=== PATIENT | female | born 1975 | race Two or more races ===

== ENCOUNTER → 2016-11-24 | Outpatient (CLI) | payer OTHER ==
[2016-10-08 09:00] VITALS: BP 142/76
[~2016-11-24] MED LIST: CYCL10TA2 PO; FLUC150T PO; IBUP-1027 PO; IOHEXOL 240 MG/ML 50ML VIAL. PO ONE; IOHEXOL 300 MG/ML 75 ML VIAL IV ONE; LISI-338 PO; NAPR500T PO
--- NOTE | 2016-11-24 10:58 | RAD ---
CT of the chest, abdomen and pelvis with contrast, 11/24/2016: History: Right breast cancer Multidetector CT imaging was performed following oral and IV administration of contrast. No previous studies are available at this time for comparison purposes. There is a 4.5 cm mass in the lateral aspect of the right breast compatible with the given history of a breast malignancy. There is right breast skin thickening. There are mildly enlarged right axillary lymph nodes with the largest of these measuring 29 x 12 x 20 mm. No mediastinal or hilar adenopathy is seen. The thoracic aorta is of normal caliber. No pulmonary mass or significant infiltrate is seen. There is no evidence of pleural fluid. No hepatic abnormality is seen. There is a small radiopacity along the posterior wall of the gallbladder suggesting a calculus versus a mural calcification. The pancreas is unremarkable. The spleen is of normal size. No renal or adrenal abnormality is detected. The abdominal aorta is unremarkable. No abdominal or pelvic adenopathy is seen. The uterus is within normal limits in size, deviated to the right of midline. There is a small cyst in the left ovary. The bowel loops are not dilated. No significant free fluid is evident in the abdomen. No significant bony abnormality is detected. IMPRESSION: 1. Right breast mass compatible with the given history of breast malignancy. 2. Mild right axillary adenopathy. 3. No CT evidence of intrathoracic, abdominal or pelvic metastatic disease. 4. Probable cholelithiasis. PQRS Compliance Statement: One or more of the following individualized dose reduction techniques were utilized for this examination: 1. Automated exposure control 2. Adjustment of the mA and/or kV according to patient size 3. Use of iterative reconstruction technique
== END | disposition home or self-care (01) ==
LOC: CT 08:17
PROVIDERS: ATTEND Family Medicine
DX: D05.11 Intraductal carcinoma in situ of right breast (principal)
CPT/HCPCS: 71260; 74177; Q9966; Q9967

== ENCOUNTER → 2016-11-26 | Day surgery (SDC) | payer OTHER ==
[~2016-11-26] VITALS: Ht 149.9 cm; Wt 64.9 kg
[~2016-11-26] MED LIST changes: +DEXAMETHASONE SOD PHOS 20 MG/5 ML VIAL. ONE; +HEPARIN SODIUM 5,000 UNIT in IV NORMAL SALINE 500ML BAG 500 ML IRR ONE; +HEPARIN for IV BOLUS 10,000 UNIT/10 ML VIAL. ONE; +HYDR-971 PO; +HYDROcodone/APAP 5/325MG 1 TAB TABLET PO ONE; +HYDROmorphone 2 MG/ML VIAL IV PRN; -IOHEXOL 240 MG/ML 50ML VIAL. PO ONE; -IOHEXOL 300 MG/ML 75 ML VIAL IV ONE; +IV RINGERS,LACTATED 1000ML 1,000 ML IV SCH; +LIDOCAINE 1% 1 ML SYRINGE. ID PRN; +LIDOCAINE 1% PF 30 ML VIAL. ONE; +LIDOCAINE 2% PF Vial for OR 5 ML VIAL. ONE; +MIDAZOLAM HCL/PF 2 MG/2 ML VIAL. ONE; +MORPHINE SULFATE 2 MG/ML DISP.SYRIN. IV PRN; +ONDANSETRON PF 4 MG/2 ML VIAL. IV PRN; +ONDANSETRON PF 4 MG/2 ML VIAL. ONE; +PHENYLEPHRINE in 0.9% NACL PF 1 MG/10 ML DISP.SYRIN. IV ONE; +PROCHLORPERAZINE 10 MG/2 ML VIAL. IV PRN; +PROPOFOL 20 ML IV ONE; +SEVOFLURANE 61 TO 120 MINUTES. IH ONE; +fentaNYL PF VIAL 100 MCG/2 ML VIAL IV PRN; +fentaNYL PF VIAL 100 MCG/2 ML VIAL ONE
--- NOTE | 2016-11-26 12:56 | PDOC1 ---
History and Physical Date of Admission Date of Admission DATE: 11/26/16 TIME: 12:52 History of Present Illness History of Present Illness The patient is a 41 year old female who was recently diagnosed with right breast cancer with spread to an axillary lymph node. She received an Oncology consultation and will be receiving neoadjuvant chemotherapy. A request was made for a portacath to begin treatment. Past Medical History Past Medical History R breast cancer Past Surgical History Past Surgical History C section Social History Smoke: No ALCOHOL: none Current Medications Current Medications Current Medications Ondansetron HCl (Zofran) 4 mg PRN Q6HRS PRN IV NAUSEA/VOMITING; Start 11/26/16 at 07:00; Stop 11/27/16 at 06:59 Fentanyl Citrate (Fentanyl 2ml Vial) 25 mcg PRN Q5MIN PRN IV MILD PAIN; Start 11/26/16 at 07:00; Stop 11/27/16 at 06:59 Fentanyl Citrate (Fentanyl 2ml Vial) 50 mcg PRN Q5MIN PRN IV MODERATE PAIN; Start 11/26/16 at 07:00; Stop 11/27/16 at 06:59 Morphine Sulfate 1 mg PRN Q10MIN PRN IV SEVERE PAIN; Start 11/26/16 at 07:00; Stop 11/27/16 at 06:59 Ringer's Solution 1,000 ml @ 30 mls/hr Q24H IV Last administered on 11/26/16t 12:28; Start 11/26/16 at 07:00; Stop 11/26/16 at 18:59 Lidocaine HCl 2 ml PRN 1X PRN ID PRIOR TO IV START; Start 11/26/16 at 07:00; Stop 11/27/16 at 06:59 Hydromorphone HCl (Dilaudid) 0.5 mg PRN Q10MIN PRN IV SEV PAIN, Second choice; Start 11/26/16 at 07:00; Stop 11/27/16 at 06:59 Prochlorperazine Edisylate (Compazine) 5 mg PACU PRN PRN IV NAUSEA, MRX1; Start 11/26/16 at 07:00; Stop 11/27/16 at 06:59 Cefazolin Sodium/ Dextrose 50 ml @ 100 mls/hr 1X PREOP PRN IV Prior to surgery ; Start 11/26/16 at 08:00 Lidocaine HCl 30 ml STK-MED ONCE .ROUTE ; Start 11/26/16 at 06:59; Stop at 07:00; Status DC Heparin Sodium (Porcine) (Heparin Sodium) 10,000 unit STK-MED ONCE .ROUTE ; Start 11/26/16 at 07:00; Stop 11/26/16 at 07:01; Status DC Heparin Sodium (Porcine) 5000 unit/Sodium Chloride 505 ml @ 505 mls/hr 1X PERIOP ONCE IRR ; Start 11/26/16 at 07:24; Stop 11/26/16 at 08:23; Status DC Active Scripts Active Reported Lisinopril 5 Mg Tablet 5 Mg PO DAILY Allergies Allergies: Coded Allergies: No Known Drug Allergies (Unverified , 11/26/16) ROS General: No: Chills, Night Sweats, Fatigue, Malaise, Appetite, Other PSYCHOLOGICAL ROS: No: Anxiety, Behavioral Disorder, Concentration difficultie , Decreased libido, Depression, Disorientation, Hallucinations, Hostility, Irritablity, Memory difficulties, Mood Swings, Obsessive thoughts, Physical abuse, Sexual abuse, Sleep disturbances, Suicidal ideation, Other Eyes: No Blurry vision, No Decreased vision, No Double vision, No Dry eyes, No Excessive tearing, No Eye Pain, No Itchy Eyes, No Loss of vision, No Photophobia , No Scotomata, No Uses contacts, No Uses glasses, No Other HEENT: No: Heacaches, Visual Changes, Hearing change, Nasal congestion, Nasal discharge, Oral lesions, Sinus pain, Sore Throat, Epistaxis, Sneezing, Snoring, Tinnitus, Vertigo, Vocal changes, Other ALLERGY AND IMMUNOLOGY: No: Hives, Insect Bite Sensitivity, Itchy/Watery Eyes, Nasal Congestion, Post Nasal Drip, Seasonal Allergies, Other Hematological and Lymphatic: No: Bleeding Problems, Blood Clots, Blood Transfusions, Brusing, Night Sweats, Pallor, Swollen Lymph Nodes, Other ENDOCRINE: No: Breast Changes, Galactorrhea, Hair Pattern Changes, Hot Flashes , Malaise/lethargy, Mood Swings, Palpitations, Polydipsia/polyuria, Skin Changes , Temperature Intolerance, Unexpected Weight Changes, Other Respiratory: No: Cough, Hemoptysis, Orthopnea, Pleuritic Pain, Shortness of breath, SOB with excertion, Sputum Changes, Stridor, Tachypnea, Wheezing, Other Cardiovascular: No Chest Pain, No Palpitations, No Orthopnea, No Paroxysmal Noc. Dyspnea, No Edema, No Lt Headedness, No Other Gastrointestinal: No Nausea, No Vomiting, No Abdominal Pain, No Diarrhea, No Constipation, No Melena, No Hematochezia, No Other Genitourinary: No Dysuria, No Frequency, No Incontinence, No Hematuria, No Retention, No Discharge, No Urgency, No Pain, No Flank Pain, No Other, No , No , No , No , No , No , No Musculoskeletal: No Gait Disturbance, No Joint Pain, No Joint Stiffness, No Joint Swelling, No Muscle Pain, No Muscular Weakness, No Pain In:, No Swelling In:, No Other Neurological: No Behavorial Changes, No Bowel/Bladder ControlChng, No Confusion , No Dizziness, No Gait Disturbance, No Headaches, No Impaired Coord/balance, No Memory Loss, No Numbness/Tingling, No Seizures, No Speech Problems, No Tremors, No Visual Changes, No Weakness, No Other Skin: No Dry Skin, No Eczema, No Hair Changes, No Lumps, No Mole Changes, No Mottling, No Nail Changes, No Pruritus, No Rash, No Skin Lesion Changes, No Other, No Acne Physical Exam General: Alert, Oriented X3, Cooperative HEENT: Atraumatic Lungs: Clear to auscultation Heart: RRR Breasts: Abnormal mass palpable (R breast, upper outer quadrant) Abdomen: Soft, No tenderness Extremities: No clubbing, No cyanosis Skin: No rashes, No breakdown Neuro: Normal gait, Normal speech Vitals Vitals Vital Signs Date Time Temp Pulse Resp B/P (MAP) Pulse Ox O2 Delivery O2 Flow Rate FiO2 11/26/16 12:08 98.4 64 20 169/76 100 Room Air 98.4 VTE Prophylaxis Ordered VTE Prophylaxis Devices: Yes VTE Pharmacological Prophylaxi: No Assessment/Plan Assessment/Plan R breast cancer with spread to lymph nodes; Plan for portacath placement with sonosite guidance. The details and risks of surgery were discussed. She understands and would like to proceed. REY YEAGER MD November 26, 2016 12:56
--- NOTE | 2016-11-26 16:40 | DISCH ---
DISCHARGE INSTRUCTIONS Condition on Discharge Condition on Discharge: Stable Activity After Discharge Activity Instructions for Disc: Resume previous activity, Other, see below Diet after Discharge Diet after Discharge: Regular Wound Incision Care Wound/Incision Care: Other, see below (keep dressing clean and dry) Follow-Up Follow up with: Cancer center, call for appointment REY YEAGER MD November 26, 2016 16:40
--- NOTE | 2016-11-26 16:44 | PDOC4 ---
Operative Note Operative Note Operative Note: Preoperative Diagnosis: R breast Cancer Postoperative Diagnosis: Same Procedure: Placement of Power Port-A-Cath using SonoSite guidance Surgeon: Rahat Anesthesia: Gen. EBL: 10 mL Specimen: None Drains: None Complications: None Indication: The patient is a 41 year old female who was recently diagnosed with breast cancer. A request was made for placement of a Port-A-Cath to allow for chemotherapy treatment. The details and risks of the procedure were discussed. The risks include bleeding, infection, vessel injury, pneumothorax, pain, anesthetic risk, port, catheter or tubing malfunction or dysfunction, potential need for additional surgery or procedure. The patient understands and would like to proceed. Description: The patient was placed supine on the operating table and general anesthesia was performed. The bilateral neck and chest were prepped with ChloraPrep and draped in a standard surgical manner. With SonoSite ultrasound guidance the left internal jugular vein was readily identified and appeared patent. Entry was made into the vein with the skinny introducer needle under ultrasound guidance. The skinny guidewire passed readily into the central venous system and was visualized with fluoroscopy. A small incision was made at the skin exit site. The skinny sheath was then placed over the guidewire. The larger guidewire was then placed within the sheath into the central venous system. Intraoperative fluoroscopy confirmed good position of the guidewire in the central venous system. The dilator and sheath were then placed over the guidewire. The catheter portion was then inserted into the central venous system and visualized using fluoroscopy. A separate left upper chest skin incision was made with a scalpel. A subcutaneous pocket was developed with cautery of sufficient size to accommodate the port. The catheter was then tunneled subcutaneously to the level of the newly formed pocket. Using fluoroscopy the catheter was positioned with the tip in the distal superior vena cava. The catheter was then cut and assembled to the port. The port was then secured to the chest wall with two 2-0 Prolene sutures. Using the Watson needle the port readily aspirated and flushed without difficulty. Fluoroscopy confirmed good positioning of the catheter with no twists or kinks. The subcutaneous tissue was approximated with 3-0 Vicryl. The skin was then closed with 4-0 Monocryl. A sterile OpSite dressing was then applied. The patient tolerated the procedure well and was sent to the recovery room in stable condition. At the end of the case all counts were correct. REY YEAGER MD November 26, 2016 16:44
[2016-11-26 17:27] LABS: NEG OBC UR NEG; POS OBC UR POS
[2016-11-26 18:10] VITALS: BP 134/67
--- NOTE | 2016-11-27 08:19 | RAD ---
Portable chest, 11/26/2016: History: Check Port-A-Cath placement No previous chest radiographs are available at this time for comparison purposes. A left Port-A-Cath has been inserted extending into the inferior aspect of the superior vena cava. The heart is within normal limits in size. The pulmonary vascularity is normal. There is mild atelectasis medially in the left base. The lungs are otherwise clear. There is no evidence of pleural fluid or pneumothorax. IMPRESSION: 1. The left Port-A-Cath is in satisfactory position. 2. Mild left basilar atelectasis.
== END | disposition home or self-care (01) ==
LOC: SURG 11:44
PROVIDERS: ATTEND Surgery
DX: C50.911 Malignant neoplasm of unspecified site of right female breast (principal); J98.11 Atelectasis; I10 Essential (primary) hypertension
CPT/HCPCS: 36561; 71010; 81025; C1788; J1100; J2250; J2370; J2405; J2704; J3010; J7040; J7120; 36556

== ENCOUNTER → 2016-12-26 | Outpatient (CLI) | payer OTHER ==
[2016-11-26 18:10] VITALS: BP 134/67
[~2016-12-26] MED LIST changes: -DEXAMETHASONE SOD PHOS 20 MG/5 ML VIAL. ONE; -HEPARIN SODIUM 5,000 UNIT in IV NORMAL SALINE 500ML BAG 500 ML IRR ONE; -HEPARIN for IV BOLUS 10,000 UNIT/10 ML VIAL. ONE; -HYDROcodone/APAP 5/325MG 1 TAB TABLET PO ONE; -HYDROmorphone 2 MG/ML VIAL IV PRN; -IV RINGERS,LACTATED 1000ML 1,000 ML IV SCH; -LIDOCAINE 1% 1 ML SYRINGE. ID PRN; -LIDOCAINE 1% PF 30 ML VIAL. ONE; -LIDOCAINE 2% PF Vial for OR 5 ML VIAL. ONE; -MIDAZOLAM HCL/PF 2 MG/2 ML VIAL. ONE; -MORPHINE SULFATE 2 MG/ML DISP.SYRIN. IV PRN; -ONDANSETRON PF 4 MG/2 ML VIAL. IV PRN; -ONDANSETRON PF 4 MG/2 ML VIAL. ONE; -PHENYLEPHRINE in 0.9% NACL PF 1 MG/10 ML DISP.SYRIN. IV ONE; -PROCHLORPERAZINE 10 MG/2 ML VIAL. IV PRN; -PROPOFOL 20 ML IV ONE; -SEVOFLURANE 61 TO 120 MINUTES. IH ONE; -fentaNYL PF VIAL 100 MCG/2 ML VIAL IV PRN; -fentaNYL PF VIAL 100 MCG/2 ML VIAL ONE
--- NOTE | 2016-12-26 15:58 | CARD ---
APPROVED REPORT EXAM: Two-dimensional and M-mode echocardiogram with Doppler and color Doppler. Other Information Quality : GoodHR: 66bpm Rhythm : NSR INDICATION Chemotherapy f/u evaluation RISK FACTORS Hypertension 2D DIMENSIONS RVDd2.5 (2.9-3.5cm)Left Atrium(2D)3.5 (1.6-4.0cm) IVSd1.0 (0.7-1.1cm)Aortic Root(2D)2.0 (2.0-3.7cm) LVDd4.1 (3.9-5.9cm)LVOT Diameter1.9 (1.8-2.4cm) PWd0.8 (0.7-1.1cm)LVDs2.5 (2.5-4.0cm) FS (%) 39.1 %SV53.2 ml LVEF(%)69.9 (>50%) Aortic Valve AoV Peak Gigi.177.7cm/sAoV VTI39.3cm AO Peak GR.12.6mmHgLVOT Peak Gigi.143.9cm/s AO Mean GR.7mmHgAVA (VMAX)2.24cm2 Mitral Valve MV E Eigyulrh84.8cm/sMV E Peak Gr.4mmHg MV DECEL [id number] A Meldmtiw85.3cm/s MV E Mean Gr.1mmHgE/A Ratio1.3 MV A Vmtpfrdf47tw Pulmonary Valve PV Peak Jlghwqsm490.2cm/s Tricuspid Valve TR P. Djitmyhv594lm/sTR Peak Gr.27mmHg Pulmonary Vein S1 Ctomohxm35.0cm/sD2 Iexyitzv94.6cm/s PVa [id number] LEFT VENTRICLE The left ventricle is normal size. There is normal left ventricular wall thickness. The left ventricu lar systolic function is normal and the ejection fraction is within normal range. The Ejection Fracti on is 65-70%. There is normal LV segmental wall motion. The left ventricular diastolic function and f illing is normal for age. RIGHT VENTRICLE The right ventricle is normal size. There is normal right ventricular wall thickness. The right ventr icular systolic function is normal. ATRIA The left atrium size is normal. The right atrium size is normal. The interatrial septum is intact wit h no evidence for an atrial septal defect or patent foramen ovale as noted on 2-D or Doppler imaging. AORTIC VALVE The aortic valve is normal in structure and function. The aortic valve is trileaflet. Doppler and Col or Flow revealed no significant aortic regurgitation. There is no significant aortic valvular stenosi s. MITRAL VALVE The mitral valve is normal in structure and function. There is no evidence of mitral valve prolapse. There is no mitral valve stenosis. Doppler and Color Flow revealed no mitral valve regurgitation note d. TRICUSPID VALVE Doppler and Color Flow revealed trace tricuspid regurgitation. The pulmonary artery systolic pressure is estimated at 30 mmHg. There is mild pulmonary hypertension. PULMONIC VALVE Doppler and Color Flow revealed no pulmonic valvular regurgitation. There is no pulmonic valvular shailesh nosis. GREAT VESSELS The aortic root is normal in size. The ascending aorta is normal in size. The pulmonary artery is nor mal. The IVC is normal in size and collapses >50% with inspiration. PERICARDIAL EFFUSION There is no evidence of significant pericardial effusion. Critical Notification Critical Value: No <Conclusion> The left ventricular systolic function is normal and the ejection fraction is within normal range. Th e Ejection Fraction is 65-70%. There is normal LV segmental wall motion.
== END | disposition home or self-care (01) ==
LOC: ECHO 12:52
PROVIDERS: ATTEND Internal Medicine Cardiovascular Disease
DX: Z09 Encounter for follow-up examination after completed treatment for conditions other than malignant neoplasm (principal); I10 Essential (primary) hypertension
CPT/HCPCS: 93306

== ENCOUNTER 2017-01-07 17:01 | Inpatient (IN) | payer SELFPAY ==
[~2017-01-07] VITALS: Ht 144.8 cm; Wt 60.8 kg
[2017-01-07] MEDS ORDERED: IV NORMAL SALINE 1000ML BAG 1,000 ML IV SCH (18:27)
[2017-01-07] MEDS ORDERED: fentaNYL PF VIAL 100 MCG/2 ML VIAL IV PRN (18:30)
[2017-01-07 18:47] LABS: BASO % 0 % (0-3); EOS % 1 % (0-3); HEMATOCRIT 34.7 % (36.0-47.0); HEMOGLOBIN 11.4 g/dL (12.0-15.5); LYMPH % 29 % (24-48); MEAN CORPUSCULAR HEMOGLOBIN 28 pg (25-35); MEAN CORPUSCULAR HGB CONC 33 g/dL (31-37); MEAN CORPUSCULAR VOLUME 84 fL (79-100); MONO % 3 % (0-9); NEUT % 66 % (31-73); PLATELET COUNT 240 x10^3/uL (140-400); RED BLOOD COUNT 4.16 x10^6/uL (3.50-5.40); RED CELL DISTRIBUTION WIDTH 13.9 % (11.5-14.5); WHITE BLOOD COUNT 3.6 x10^3/uL (4.0-11.0)
[2017-01-07 19:00] LABS: CREATININE 0.4 mg/dL (0.6-1.0); POTASSIUM 4.2 mmol/L (3.5-5.1)
[2017-01-07 19:15] LABS: ALBUMIN 3.3 g/dL (3.4-5.0); DIRECT BILIRUBIN 0.1 mg/dL (0.0-0.2); TOTAL BILIRUBIN 0.2 mg/dL (0.2-1.0); TOTAL PROTEIN 8.1 g/dL (6.4-8.2)
[2017-01-07 19:37] LABS: PLT ESTIMATE ADEQUATE (ADEQUATE)
[2017-01-07] MEDS ORDERED: PIPERACILLIN/TAZOBACTAM 4.5 GM in IV NORMAL SALINE 100ML 100 ML IV ONE (20:45)
[2017-01-07] MEDS ORDERED: VANCOMYCIN 1.5 GM in IV NORMAL SALINE 500ML BAG 500 ML IV ONE (20:45)
[2017-01-07] MEDS ORDERED: PIP/TAZO PER PHARMACY MC PRN (20:45)
[2017-01-07] MEDS ORDERED: MORPHINE SULFATE 4 MG/ML DISP.SYRIN. IV PRN (21:45)
[2017-01-07] MEDS ORDERED: ACETAMINOPHEN 325 MG TABLET. PO PRN ×2 (21:45→23:00)
[2017-01-07] MEDS ORDERED: ONDANSETRON PF 4 MG/2 ML VIAL. IV PRN ×2 (21:45→23:00)
[2017-01-07] MEDS: IV NORMAL SALINE 1000ML BAG 1,000 ML IV SCH (22:40)
--- NOTE | 2017-01-07 22:55 | PDOC1 ---
History and Physical Date of Admission Date of Admission 01/07/17 Identification/Chief Complaint Chief Complaint RT breast pain and swelling Problems: History of Present Illness History of Present Illness A 41 F WITH RECENT DIAGNOSIS OF BREAST CANCER, PRESNTED WITH RIGHT BREAST SWELLING, REDNESS. SYMPTOMS RECENLTY AFTER SHE GOT CHEMOTHERAPY.PAIN 7/10, LOCALIZED, NO FEVER, WEAKNESS. Past Medical History Past Medical History Past Medical History Cardiovascular: HTN Heme/Onc: Cancer (breast) Past Surgical History Past Surgical History: Family History Family History: Other (patient has strong family history of cancer. Sr. had ovarian cancer at the age of 37. Mother had ovarian cancer at the age of 50.) Social History ALCOHOL: none Drugs: None Lives: with Family Social History ALCOHOL: none Current Medications Current Medications Current Medications Medications (Trade) Dose Ordered Sig/Stephen Start Time Stop Time Status Last Admin Dose Admin Acetaminophen (Tylenol) 650 mg PRN Q4HRS PRN 01/07/17 21:45 01/08/17 21:44 Fentanyl Citrate (Fentanyl 2ml Vial) 25 mcg PRN Q15MIN PRN 01/07/17 18:30 01/08/17 18:29 01/07/17 18:47 25 MCG Morphine Sulfate 4 mg PRN Q2HR PRN 01/07/17 21:45 01/08/17 21:44 Ondansetron HCl (Zofran) 4 mg PRN Q8HRS PRN 01/07/17 21:45 01/08/17 21:44 Piperacillin Sod/ Tazobactam Sod (Zosyn Per Pharmacy) 1 each PRN DAILY PRN 01/07/17 20:45 Piperacillin Sod/ Tazobactam Sod 4.5 gm/Sodium Chloride 100 ml @ 200 mls/hr Q6HRS 01/08/17 00:00 Sodium Chloride 1,000 ml @ 125 mls/hr Q8H 01/07/17 21:43 01/08/17 21:42 Vancomycin HCl (Vanco Per Pharmacy) 1 each PRN DAILY PRN 01/07/17 20:45 Vancomycin HCl 1.5 gm/Sodium Chloride 500 ml @ 250 mls/hr 1X ONCE 01/07/17 20:45 01/07/17 22:44 DC 01/07/17 21:05 250 MLS/HR Vancomycin HCl 1 gm/Sodium Chloride 250 ml @ 250 mls/hr Q8HRS 01/08/17 06:00 Allergies Allergies Allergies Coded Allergies Type Severity Reaction Last Updated Verified No Known Drug Allergies 11/26/16 No ROS Review of System CONSTITUTIONAL: fever or NO chills EYES: No recent changes SKIN: No rash or itching CARDIOVASCULAR: No chest pain, syncope, palpitations, or edema RESPIRATORY: No SOB or cough GASTROINTESTINAL: No nausea, vomiting or abdominal pain NEUROLOGICAL: No headaches or weakness ENDOCRINE: No cold or heat intolerance GENITOURINARY: No urgency or frequency of urination MUSCULOSKELETAL: No back pain or joint pain LYMPHATICS: RIGHT SIDE AXILLA SWELLINGS PSYCHIATRIC: No anxiety or depression Physical Exam Physical Exam GEN.: No apparent distress. Alert and oriented TIMES 3 HEENT: Head is normocephalic, atraumatic NECK: Supple. NO jvd LUNGS: Clear to auscultation. Normal airflow HEART: RRR, S1, S2 present. Peripheral pulses intact ABDOMEN: Soft, nontender. Positive bowel sounds. EXTREMITIES: Without any cyanosis. NEUROLOGIC: Normal speech, normal tone PSYCHIATRIC: Normal affect, normal mood. SKIN: right breast swelling with induration. erythema and bumpy lesions Vitals Vitals Vital Signs Date Time Temp Pulse Resp B/P (MAP) Pulse Ox O2 Delivery O2 Flow Rate FiO2 01/07/17 21:51 78 18 119/59 (79) 99 Room Air 01/07/17 17:36 98.3 98.3 Labs Labs Laboratory Tests Test 01/07/17 18:35 White Blood Count 3.6 x10^3/uL (4.0-11.0) Red Blood Count 4.16 x10^6/uL (3.50-5.40) Hemoglobin 11.4 g/dL (12.0-15.5) Hematocrit 34.7 % (36.0-47.0) Mean Corpuscular Volume 84 fL (79-100) Mean Corpuscular Hemoglobin 28 pg (25-35) Mean Corpuscular Hemoglobin Concent 33 g/dL (31-37) Red Cell Distribution Width 13.9 % (11.5-14.5) Platelet Count 240 x10^3/uL (140-400) Neutrophils (%) (Auto) 66 % (31-73) Lymphocytes (%) (Auto) 29 % (24-48) Monocytes (%) (Auto) 3 % (0-9) Eosinophils (%) (Auto) 1 % (0-3) Basophils (%) (Auto) 0 % (0-3) Neutrophils # (Auto) 2.4 x10^3uL (1.8-7.7) Lymphocytes # (Auto) 1.0 x10^3/uL (1.0-4.8) Monocytes # (Auto) 0.1 x10^3/uL (0.0-1.1) Eosinophils # (Auto) 0.0 x10^3/uL (0.0-0.7) Basophils # (Auto) 0.0 x10^3/uL (0.0-0.2) Segmented Neutrophils % 44 % (35-66) Band Neutrophils % 16 % (0-9) Lymphocytes % 36 % (24-48) Monocytes % 4 % (0-10) Dohle Bodies Few Platelet Estimate Adequate (ADEQUATE) Sodium Level 137 mmol/L (136-145) Potassium Level 4.2 mmol/L (3.5-5.1) Chloride Level 100 mmol/L (98-107) Carbon Dioxide Level 29 mmol/L (21-32) Anion Gap 8 (6-14) Blood Urea Nitrogen 11 mg/dL (7-20) Creatinine 0.4 mg/dL (0.6-1.0) Estimated GFR (Cockcroft-Gault) 175.0 Glucose Level 101 mg/dL (70-99) Lactic Acid Level 0.8 mmol/L (0.4-2.0) Calcium Level 9.0 mg/dL (8.5-10.1) Total Bilirubin 0.2 mg/dL (0.2-1.0) Direct Bilirubin 0.1 mg/dL (0.0-0.2) Aspartate Amino Transf (AST/SGOT) 19 U/L (15-37) Alanine Aminotransferase (ALT/SGPT) 27 U/L (14-59) Alkaline Phosphatase 116 U/L (46-116) Total Protein 8.1 g/dL (6.4-8.2) Albumin 3.3 g/dL (3.4-5.0) Laboratory Tests Test 01/07/17 18:35 White Blood Count 3.6 x10^3/uL (4.0-11.0) Red Blood Count 4.16 x10^6/uL (3.50-5.40) Hemoglobin 11.4 g/dL (12.0-15.5) Hematocrit 34.7 % (36.0-47.0) Mean Corpuscular Volume 84 fL (79-100) Mean Corpuscular Hemoglobin 28 pg (25-35) Mean Corpuscular Hemoglobin Concent 33 g/dL (31-37) Red Cell Distribution Width 13.9 % (11.5-14.5) Platelet Count 240 x10^3/uL (140-400) Neutrophils (%) (Auto) 66 % (31-73) Lymphocytes (%) (Auto) 29 % (24-48) Monocytes (%) (Auto) 3 % (0-9) Eosinophils (%) (Auto) 1 % (0-3) Basophils (%) (Auto) 0 % (0-3) Neutrophils # (Auto) 2.4 x10^3uL (1.8-7.7) Lymphocytes # (Auto) 1.0 x10^3/uL (1.0-4.8) Monocytes # (Auto) 0.1 x10^3/uL (0.0-1.1) Eosinophils # (Auto) 0.0 x10^3/uL (0.0-0.7) Basophils # (Auto) 0.0 x10^3/uL (0.0-0.2) Segmented Neutrophils % 44 % (35-66) Band Neutrophils % 16 % (0-9) Lymphocytes % 36 % (24-48) Monocytes % 4 % (0-10) Dohle Bodies Few Platelet Estimate Adequate (ADEQUATE) Sodium Level 137 mmol/L (136-145) Potassium Level 4.2 mmol/L (3.5-5.1) Chloride Level 100 mmol/L (98-107) Carbon Dioxide Level 29 mmol/L (21-32) Anion Gap 8 (6-14) Blood Urea Nitrogen 11 mg/dL (7-20) Creatinine 0.4 mg/dL (0.6-1.0) Estimated GFR (Cockcroft-Gault) 175.0 Glucose Level 101 mg/dL (70-99) Lactic Acid Level 0.8 mmol/L (0.4-2.0) Calcium Level 9.0 mg/dL (8.5-10.1) Total Bilirubin 0.2 mg/dL (0.2-1.0) Direct Bilirubin 0.1 mg/dL (0.0-0.2) Aspartate Amino Transf (AST/SGOT) 19 U/L (15-37) Alanine Aminotransferase (ALT/SGPT) 27 U/L (14-59) Alkaline Phosphatase 116 U/L (46-116) Total Protein 8.1 g/dL (6.4-8.2) Albumin 3.3 g/dL (3.4-5.0) VTE Prophylaxis Ordered VTE Prophylaxis Devices: Yes VTE Pharmacological Prophylaxi: Yes Assessment/Plan Assessment/Plan Rt BREAST CANCER WITH RECENT CHEMO RT BREAST ABSCESS NEUTROPENIA GEN WEAKNESS PLAN ON ZOSYN AND VANCOMYCIN RENAL DOSING OF VANCOMYCIN ONCOLOGY / SURGERY CONSULT NEUTROPENIC PRECAUTIONS CBC/BMP PAIN CONTROL WTIH PRN MORPHINE/ D/W FAMILY AT BEDSIDE IMAGES REVIEWED, D/W ER PHYSICIAN PROGNOSIS GUARDED. BARBARA CORONA MD Jan 07, 2017 22:55
[2017-01-07 23:00] VITALS: BP 110/60
[2017-01-07] MEDS ORDERED: hydrALAZINE 20 MG/ML VIAL. IVP PRN (23:00)
[2017-01-07] MEDS ORDERED: ALBUTEROL SULFATE 2.5 MG/3 ML NEBU. NEB PRN (23:00)
[2017-01-08] MEDS: VANCOMYCIN PER PHARMACY MC PRN (00:39)
--- NOTE | 2017-01-08 00:52 | ED.ADGEN ---
Past Medical History Past Medical History: Cancer, Hypertension, Other Additional Past Medical Histor: R BREAST CANCER Past Surgical History: Alcohol Use: None Drug Use: None Adult General Chief Complaint Chief Complaint: ABSCESS HPI HPI Patient is a 41 year old woman, with history of hypertension, and recent diagnosis of locally advanced nonmetastatic breast cancer, who received her first dose of AC last , who presents the emergency department with a complaint of breast pain and drainage from the right breast. Patient's cancer is isolated right breast, and also in the axillary lymph nodes. She has not had any surgery or radiation. Patient states she is scheduled for her second dose of chemotherapy in 1 week. Patient states that she began expressing fevers on Thursday, and contacted her oncologist office, and was told to go to the ED if symptoms persisted. She was not started on antibiotics that time. Patient did receive a G-CSF injection the day after her chemotherapy was administered. She denies any other medications currently. Denies any nausea or vomiting, any abdominal pain, any focal weakness, numbness or tingling. She is complaining of isolated pain and increased swelling in the breast yesterday, and drainage from the breast which she first noted today. Patient is American speaking, translation is assisted by family at bedside. Patient placed on neutropenic precautions. Review of Systems Review of Systems Constitutional: Denies fever or chills. [] Eyes: Denies change in visual acuity. [] HENT: Denies nasal congestion or sore throat. [] Respiratory: Denies cough or shortness of breath. Breast pain and drainage. [] Cardiovascular: Denies chest pain or edema. [] GI: Denies abdominal pain, nausea, vomiting, bloody stools or diarrhea. [] : Denies dysuria. [] Musculoskeletal: Denies back pain or joint pain. [] Integument: Denies rash. [] Neurologic: Denies headache, focal weakness or sensory changes. [] Endocrine: Denies polyuria or polydipsia. [] Lymphatic: Denies swollen glands. [] Psychiatric: Denies depression or anxiety. [] Current Medications Current Medications Current Medications Medications (Trade) Dose Ordered Sig/Stephen Start Time Stop Time Status Last Admin Dose Admin Fentanyl Citrate (Fentanyl 2ml Vial) 25 mcg PRN Q15MIN PRN 01/07/17 18:30 01/08/17 18:29 01/07/17 18:47 25 MCG Sodium Chloride 1,000 ml @ 1,000 mls/hr Q1H 01/07/17 18:27 01/07/17 19:26 DC 01/07/17 18:27 1,000 MLS/HR Allergies Allergies Allergies Coded Allergies Type Severity Reaction Last Updated Verified No Known Drug Allergies 11/26/16 No Physical Exam Physical Exam Constitutional: Well developed, well nourished, no acute distress, non-toxic appearance. [] HENT: Normocephalic, atraumatic, bilateral external ears normal, oropharynx moist, no oral exudates, nose normal. [] Eyes: PERRLA, EOMI, conjunctiva normal, no discharge. [] Neck: Normal range of motion, no tenderness, supple, no stridor. [] Cardiovascular:Heart rate regular rhythm, no murmur, S1, S2, no rubs or gallops. [] Lungs & Thorax: Bilateral breath sounds clear to auscultation, no wheezing, rhonchi, rales. Patient with erythema and large mass in the left breast, which is immobile, located over the entire right side of the breast, patient noted to have 2 distinct areas of increasing erythema, each approximately 3 cm circumferentially, with a small amount of yellowish drainage leaking from the more distal area, there is no bleeding, no open lesions or areas of injury. Patient noted to have right axillary lymphadenopathy, no drainage or locations, no other abnormalities identified. Patient has a left-sided port in place, area is clean dry intact nontender. Abdomen: Bowel sounds normal, soft, no tenderness, no masses, no pulsatile masses. [] Skin: Warm, dry, no erythema, no rash. [] Back: No tenderness, no CVA tenderness. [] Extremities: No tenderness, no cyanosis, no clubbing, ROM intact, no edema. [ Negative Homans sign.] Neurologic: Alert and oriented X 3, normal motor function, normal sensory function, no focal deficits noted. [] Psychologic: Affect normal, judgement normal, mood normal. [] Current Patient Data Vital Signs Vital Signs Date Time Temp Pulse Resp B/P (MAP) Pulse Ox O2 Delivery O2 Flow Rate FiO2 01/07/17 19:51 84 18 123/66 (85) 98 Room Air 01/07/17 17:36 98.3 98.3 Lab Values Laboratory Tests Test 01/07/17 18:35 White Blood Count 3.6 x10^3/uL (4.0-11.0) L Red Blood Count 4.16 x10^6/uL (3.50-5.40) Hemoglobin 11.4 g/dL (12.0-15.5) L Hematocrit 34.7 % (36.0-47.0) L Mean Corpuscular Volume 84 fL (79-100) Mean Corpuscular Hemoglobin 28 pg (25-35) Mean Corpuscular Hemoglobin Concent 33 g/dL (31-37) Red Cell Distribution Width 13.9 % (11.5-14.5) Platelet Count 240 x10^3/uL (140-400) Neutrophils (%) (Auto) 66 % (31-73) Lymphocytes (%) (Auto) 29 % (24-48) Monocytes (%) (Auto) 3 % (0-9) Eosinophils (%) (Auto) 1 % (0-3) Basophils (%) (Auto) 0 % (0-3) Neutrophils # (Auto) 2.4 x10^3uL (1.8-7.7) Lymphocytes # (Auto) 1.0 x10^3/uL (1.0-4.8) Monocytes # (Auto) 0.1 x10^3/uL (0.0-1.1) Eosinophils # (Auto) 0.0 x10^3/uL (0.0-0.7) Basophils # (Auto) 0.0 x10^3/uL (0.0-0.2) Segmented Neutrophils % 44 % (35-66) Band Neutrophils % 16 % (0-9) H Lymphocytes % 36 % (24-48) Monocytes % 4 % (0-10) Dohle Bodies Few Platelet Estimate Adequate (ADEQUATE) Sodium Level 137 mmol/L (136-145) Potassium Level 4.2 mmol/L (3.5-5.1) Chloride Level 100 mmol/L (98-107) Carbon Dioxide Level 29 mmol/L (21-32) Anion Gap 8 (6-14) Blood Urea Nitrogen 11 mg/dL (7-20) Creatinine 0.4 mg/dL (0.6-1.0) L Estimated GFR (Cockcroft-Gault) 175.0 Glucose Level 101 mg/dL (70-99) H Lactic Acid Level 0.8 mmol/L (0.4-2.0) Calcium Level 9.0 mg/dL (8.5-10.1) Total Bilirubin 0.2 mg/dL (0.2-1.0) Direct Bilirubin 0.1 mg/dL (0.0-0.2) Aspartate Amino Transferase (AST) 19 U/L (15-37) Alanine Aminotransferase (ALT) 27 U/L (14-59) Alkaline Phosphatase 116 U/L (46-116) Total Protein 8.1 g/dL (6.4-8.2) Albumin 3.3 g/dL (3.4-5.0) L Laboratory Tests 01/07/17 18:35 Laboratory Tests 01/07/17 18:35 EKG EKG EC: Sinus rhythm, heart rate 87 beats minute, upright axis, QTC of 455, PA 1:30, QRS of 84, no ST elevations or depressions, no evidence of acute ST abnormalities. As interpreted by me. Radiology/Procedures Radiology/Procedures Chest x-ray: PA and lateral: [Normal cardiopulmonary silhouette, no infiltrates , no effusions, no bony abnormalities, no pneumothorax, patient noted to have soft tissue densities in the right breast consistent with area of mass and abscess formation. No disagreeing calcifications other abnormalities identified. As interpreted by me.] Course & Med Decision Making Course & Med Decision Making Pertinent Labs and Imaging studies reviewed. (See chart for details) I did speak with the patient's oncologist, Dr. Nila Doe, he stated the patient is taking AC, firm to the patient had advanced local disease, with a large breast mass, but had no evidence of erosion or abscess formation during his last evaluation. Patient noted to be neutropenic, with an ANC of 0.5, and a white count of 3.6, after receiving G-CSF. Patient has a port in place as stated, initiated on vancomycin and Zosyn per pharmacy for treatment of infected breast malignancy with neutropenic fever. IV fluids infusing, otherwise no concerning abnormalities identified, patient is agreeable with plan for admission to the hospital, IV medications, IV fluids, symptom management. Findings as above discussed with Dr. Izquierdo, who evaluated the patient in the emergency department. Patient accepted his service as a full admission to the medical telemetry floor for continued monitoring and management. Bridge orders entered per discussion. Dragon Disclaimer Dragon Disclaimer This electronic medical record was generated, in whole or in part, using a voice recognition dictation system. Departure Impression: Primary Impression: Neutropenic fever Additional Impressions: Breast cancer Abscess Disposition: 09 ADMITTED INPATIENT Admitting Physician: Renzo Greebnerg Condition: IMPROVED Problem Qualifiers SINGH ABDI DO Jan 08, 2017 00:52
[2017-01-08 03:00] VITALS: BP 105/64
[2017-01-08 04:30] LABS: BASO % 0 % (0-3); EOS % 2 % (0-3); HEMATOCRIT 28.7 % (36.0-47.0); HEMOGLOBIN 9.5 g/dL (12.0-15.5); LYMPH # 0.9 x10^3/uL (1.0-4.8); LYMPH % 36 % (24-48); MEAN CORPUSCULAR HEMOGLOBIN 28 pg (25-35); MEAN CORPUSCULAR HGB CONC 33 g/dL (31-37); MEAN CORPUSCULAR VOLUME 84 fL (79-100); MONO % 4 % (0-9); NEUT % 58 % (31-73); PLATELET COUNT 183 x10^3/uL (140-400); WHITE BLOOD COUNT 2.5 x10^3/uL (4.0-11.0)
[2017-01-08 04:51] LABS: CALCIUM 7.4 mg/dL (8.5-10.1); CREATININE 0.5 mg/dL (0.6-1.0); GFR 135.3; POTASSIUM 4.1 mmol/L (3.5-5.1)
[2017-01-08] MEDS: PIPERACILLIN/TAZOBACTAM 4.5 GM in IV NORMAL SALINE 100ML 100 ML IV SCH ×5 (05:45→18:00)
[2017-01-08] MEDS: IV NORMAL SALINE 1000ML BAG 1,000 ML IV SCH ×2 (05:45→13:43)
[2017-01-08] MEDS: VANCOMYCIN 1 GM in IV NORMAL SALINE 250ML 250 ML IV SCH ×3 (05:46→22:22)
--- NOTE | 2017-01-08 06:55 | EKG ---
[facility] [address] [place] [id number] Test Date: 2017-01-07 Test Time: 19:02:28 Pat Name: NOY OCHOAMATTIE Department: Room: Gender: F Staff Editor: : 1975 Requested By: SINGH ABDI Order Number: [id number] Reading MD: Measurements Intervals [place] Rate: 87 P: 52 MS: 130 QRS: 45 QRSD: 84 T: 14 QT: 378 QTc: 455 Interpretive Statements SINUS RHYTHM RI6.01 Unconfirmed report No previous ECG available for comparison
[2017-01-08 07:15] VITALS: BP 100/51
[2017-01-08] MEDS ORDERED: ONDANSETRON PF 4 MG/2 ML VIAL. IV PRN (07:35)
[2017-01-08] MEDS ORDERED: HYDROcodone/APAP 5/325MG 1 TAB TABLET PO PRN (07:45)
--- NOTE | 2017-01-08 08:12 | RAD ---
Portable chest, 01/07/2017: History: Breast mass/cancer with breast drainage Comparison is made to a study from 11/26/2016. A left Port-A-Cath remains in place extending into the superior vena cava. The heart size and pulmonary vascularity are normal. No pulmonary infiltrate is seen. There is no evidence of pleural fluid or pneumothorax. IMPRESSION: 1. A left Port-A-Cath extends into the superior vena cava. 2. No acute cardiopulmonary abnormality is detected.
[2017-01-08] MEDS: LISINOPRIL 5 MG TABLET. PO SCH (08:35)
[2017-01-08] MEDS: HYDROcodone/APAP 5/325MG 1 TAB TABLET PO PRN ×2 (08:37→20:37)
--- NOTE | 2017-01-08 08:42 | PDOC2 ---
DANILO PANG IVORY CARVER 01/08/17 0842: CONSULT Date of Consult Date of Consult DATE: 01/08/17 TIME: 08:35 Reason for Consult Reason for Consult: breast abscess Referring Physician Referring Physician: ER Identification/Chief Complaint Chief Complaint breast pain Problems: Source Source: Chart review, Patient History of Present Illness Reason for Visit: Spoke with patient using the vocational rehab consultant phone. She started her first round of neoadjuct chemo for locally advanced breast cancer. After her treatment she noticed a mass with drainage to her right breast, she had significant pain. She reports fevers and chills this weekend Past Medical History Cardiovascular: HTN Heme/Onc: Cancer (breast) Past Surgical History Past Surgical History: Family History Family History: Other (noncontributory to current illness ) Social History ALCOHOL: none Drugs: None Lives: with Family Current Problem List Problem List Problems Medical Problems: (1) Abscess Status: Acute (2) Breast cancer Status: Acute (3) Neutropenic fever Status: Acute Current Medications Current Medications Current Medications Fentanyl Citrate (Fentanyl 2ml Vial) 25 mcg PRN Q15MIN PRN IV PAIN GREATER THAN 3/10 Last administered on 01/07/17 18:47; Start 01/07/17 at 18:30; Stop 01/08 at 18:29 Sodium Chloride 1,000 ml @ 1,000 mls/hr Q1H IV Last administered on 01/07/17 18:27; Start 01/07/17 at 18:27; Stop 01/07/17 at 19:26; Status DC Vancomycin HCl (Vanco Per Pharmacy) 1 each PRN DAILY PRN MC SEE COMMENTS Last administered on 01/08/17 00:39; Start 01/07/17 at 20:45 Piperacillin Sod/ Tazobactam Sod (Zosyn Per Pharmacy) 1 each PRN DAILY PRN MC SEE COMMENTS; Start 01/07/17 at 20:45 Vancomycin HCl 1.5 gm/Sodium Chloride 500 ml @ 250 mls/hr 1X ONCE IV Last administered on 01/07/17 21:05; Start 01/07/17 at 20:45; Stop 01/07/17 at 22:44; Status DC Piperacillin Sod/ Tazobactam Sod 4.5 gm/Sodium Chloride 100 ml @ 200 mls/hr 1X ONCE IV Last administered on 01/07/17 20:50; Start 01/07/17 at 20:45; Stop 01/07/17 at 21:14; Status DC Ondansetron HCl (Zofran) 4 mg PRN Q8HRS PRN IV NAUSEA/VOMITING; Start 01/07/17 at 21:45; Stop 01/07/17 at 23:01; Status DC Morphine Sulfate 4 mg PRN Q2HR PRN IV SEVERE PAIN; Start 01/07/17 at 21:45; Stop 01/08/17 at 21:44 Sodium Chloride 1,000 ml @ 125 mls/hr Q8H IV Last administered on 01/08/17 05: 45; Start 01/07/17 at 21:43; Stop 01/08/17 at 21:42 Acetaminophen (Tylenol) 650 mg PRN Q4HRS PRN PO FEVER; Start 01/07/17 at 21:45; Stop 01/08/17 at 21:44 Vancomycin HCl 1 gm/Sodium Chloride 250 ml @ 250 mls/hr Q8HRS IV Last administered on 01/08/17 05:46; Start 01/08/17 at 06:00 Piperacillin Sod/ Tazobactam Sod 4.5 gm/Sodium Chloride 100 ml @ 200 mls/hr Q6HRS IV Last administered on 01/08/17 05:45; Start 01/08/17 at 00:00 Acetaminophen (Tylenol) 325 mg PRN Q6HRS PRN PO MILD PAIN / TEMP; Start at 23:00 Acetaminophen/ Hydrocodone Bitart (Lortab 5/325) 1 tab PRN Q6HRS PRN PO MODERATE TO SEVERE PAIN; Start 01/07/17 at 23:00 Hydralazine HCl (Apresoline) 10 mg PRN Q4HRS PRN IVP ELEVATED BP, SEE COMMENTS ; Start 01/07/17 at 23:00 Ondansetron HCl (Zofran) 4 mg PRN Q8HRS PRN IV NAUSEA/VOMITING; Start 01/07/17 at 23:00; Stop 01/08/17 at 07:36; Status DC Albuterol Sulfate (Ventolin Neb Soln) 2.5 mg PRN Q4HRS PRN NEB SHORTNESS OF BREATH; Start 01/07/17 at 23:00 Vancomycin HCl 1 each 1X ONCE MC ; Start 01/08/17 at 21:30; Stop 01/08/17 at 21: 31 Ondansetron HCl (Zofran) 4 mg PRN Q6HRS PRN IV NAUSEA/VOMITING; Start 01/08/17 at 07:35 Acetaminophen/ Hydrocodone Bitart (Lortab 5/325) 1 tab PRN TID PRN PO pain; Start 01/08/17 at 07:45 Lisinopril (Prinivil) 5 mg DAILY PO ; Start 01/08/17 at 09:00 Active Scripts Active Reported [place]ridge 5-325 Tablet (Acetaminophen/Hydrocodone Bitart) 1 Each Tablet 1-2 Tab PO Q4-6HRS LAST DOSE GIVEN: DATE: today TIME: 545 pm so next dose at 945 pm as needed for pain Lisinopril 5 Mg Tablet 5 Mg PO DAILY Allergies Allergies: Coded Allergies: No Known Drug Allergies (Unverified , 11/26/16) ROS General: YES: Chills, Other (fevers) PSYCHOLOGICAL ROS: No: Anxiety, Depression Eyes: No Blurry vision, No Double vision HEENT: No: Heacaches, Sore Throat Hematological and Lymphatic: No: Bleeding Problems, Blood Clots Breast: Other (see hpi) Respiratory: No: Cough, Shortness of breath Cardiovascular: No Chest Pain, No Palpitations Gastrointestinal: No Nausea, No Vomiting Genitourinary: No Dysuria, No Hematuria Musculoskeletal: No Joint Pain, No Muscle Pain Neurological: No Confusion Physical Exam General: Alert, Oriented X3, Cooperative, No acute distress HEENT: PERRLA, Mucous membr. moist/pink Lungs: Clear to auscultation, Normal air movement Heart: Regular rate, Normal S1, Normal S2, No murmurs Abdomen: Normal bowel sounds, Soft, No tenderness Extremities: No clubbing, No cyanosis Skin: Other (right breast with large mass to 11 oclock area, fluctuant, tender , erythema, some drainage, central small califlower type lesion ) Neuro: Normal speech, Sensation intact Psych/Mental Status: Mental status NL, Mood NL MUSCULOSKELETAL: No deformity, No swelling Vitals VITALS Vital Signs Date Time Temp Pulse Resp B/P (MAP) Pulse Ox O2 Delivery O2 Flow Rate FiO2 01/08/17 07:15 98.4 75 16 100/51 (67) 96 Room Air 98.4 Labs Labs Laboratory Tests Test 01/07/17 18:35 01/08/17 03:20 White Blood Count 3.6 x10^3/uL (4.0-11.0) 2.5 x10^3/uL (4.0-11.0) Red Blood Count 4.16 x10^6/uL (3.50-5.40) 3.40 x10^6/uL (3.50-5.40) Hemoglobin 11.4 g/dL (12.0-15.5) 9.5 g/dL (12.0-15.5) Hematocrit 34.7 % (36.0-47.0) 28.7 % (36.0-47.0) Mean Corpuscular Volume 84 fL (79-100) 84 fL (79-100) Mean Corpuscular Hemoglobin 28 pg (25-35) 28 pg (25-35) Mean Corpuscular Hemoglobin Concent 33 g/dL (31-37) 33 g/dL (31-37) Red Cell Distribution Width 13.9 % (11.5-14.5) 14.0 % (11.5-14.5) Platelet Count 240 x10^3/uL (140-400) 183 x10^3/uL (140-400) Neutrophils (%) (Auto) 66 % (31-73) 58 % (31-73) Lymphocytes (%) (Auto) 29 % (24-48) 36 % (24-48) Monocytes (%) (Auto) 3 % (0-9) 4 % (0-9) Eosinophils (%) (Auto) 1 % (0-3) 2 % (0-3) Basophils (%) (Auto) 0 % (0-3) 0 % (0-3) Neutrophils # (Auto) 2.4 x10^3uL (1.8-7.7) 1.4 x10^3uL (1.8-7.7) Lymphocytes # (Auto) 1.0 x10^3/uL (1.0-4.8) 0.9 x10^3/uL (1.0-4.8) Monocytes # (Auto) 0.1 x10^3/uL (0.0-1.1) 0.1 x10^3/uL (0.0-1.1) Eosinophils # (Auto) 0.0 x10^3/uL (0.0-0.7) 0.1 x10^3/uL (0.0-0.7) Basophils # (Auto) 0.0 x10^3/uL (0.0-0.2) 0.0 x10^3/uL (0.0-0.2) Segmented Neutrophils % 44 % (35-66) Band Neutrophils % 16 % (0-9) Lymphocytes % 36 % (24-48) Monocytes % 4 % (0-10) Dohle Bodies Few Platelet Estimate Adequate (ADEQUATE) Sodium Level 137 mmol/L (136-145) 142 mmol/L (136-145) Potassium Level 4.2 mmol/L (3.5-5.1) 4.1 mmol/L (3.5-5.1) Chloride Level 100 mmol/L (98-107) 109 mmol/L (98-107) Carbon Dioxide Level 29 mmol/L (21-32) 26 mmol/L (21-32) Anion Gap 8 (6-14) 7 (6-14) Blood Urea Nitrogen 11 mg/dL (7-20) 9 mg/dL (7-20) Creatinine 0.4 mg/dL (0.6-1.0) 0.5 mg/dL (0.6-1.0) Estimated GFR (Cockcroft-Gault) 175.0 135.3 Glucose Level 101 mg/dL (70-99) 105 mg/dL (70-99) Lactic Acid Level 0.8 mmol/L (0.4-2.0) Calcium Level 9.0 mg/dL (8.5-10.1) 7.4 mg/dL (8.5-10.1) Total Bilirubin 0.2 mg/dL (0.2-1.0) Direct Bilirubin 0.1 mg/dL (0.0-0.2) Aspartate Amino Transf (AST/SGOT) 19 U/L (15-37) Alanine Aminotransferase (ALT/SGPT) 27 U/L (14-59) Alkaline Phosphatase 116 U/L (46-116) Total Protein 8.1 g/dL (6.4-8.2) Albumin 3.3 g/dL (3.4-5.0) Laboratory Tests Test 01/07/17 18:35 01/08/17 03:20 White Blood Count 3.6 x10^3/uL (4.0-11.0) 2.5 x10^3/uL (4.0-11.0) Red Blood Count 4.16 x10^6/uL (3.50-5.40) 3.40 x10^6/uL (3.50-5.40) Hemoglobin 11.4 g/dL (12.0-15.5) 9.5 g/dL (12.0-15.5) Hematocrit 34.7 % (36.0-47.0) 28.7 % (36.0-47.0) Mean Corpuscular Volume 84 fL (79-100) 84 fL (79-100) Mean Corpuscular Hemoglobin 28 pg (25-35) 28 pg (25-35) Mean Corpuscular Hemoglobin Concent 33 g/dL (31-37) 33 g/dL (31-37) Red Cell Distribution Width 13.9 % (11.5-14.5) 14.0 % (11.5-14.5) Platelet Count 240 x10^3/uL (140-400) 183 x10^3/uL (140-400) Neutrophils (%) (Auto) 66 % (31-73) 58 % (31-73) Lymphocytes (%) (Auto) 29 % (24-48) 36 % (24-48) Monocytes (%) (Auto) 3 % (0-9) 4 % (0-9) Eosinophils (%) (Auto) 1 % (0-3) 2 % (0-3) Basophils (%) (Auto) 0 % (0-3) 0 % (0-3) Neutrophils # (Auto) 2.4 x10^3uL (1.8-7.7) 1.4 x10^3uL (1.8-7.7) Lymphocytes # (Auto) 1.0 x10^3/uL (1.0-4.8) 0.9 x10^3/uL (1.0-4.8) Monocytes # (Auto) 0.1 x10^3/uL (0.0-1.1) 0.1 x10^3/uL (0.0-1.1) Eosinophils # (Auto) 0.0 x10^3/uL (0.0-0.7) 0.1 x10^3/uL (0.0-0.7) Basophils # (Auto) 0.0 x10^3/uL (0.0-0.2) 0.0 x10^3/uL (0.0-0.2) Segmented Neutrophils % 44 % (35-66) Band Neutrophils % 16 % (0-9) Lymphocytes % 36 % (24-48) Monocytes % 4 % (0-10) Dohle Bodies Few Platelet Estimate Adequate (ADEQUATE) Sodium Level 137 mmol/L (136-145) 142 mmol/L (136-145) Potassium Level 4.2 mmol/L (3.5-5.1) 4.1 mmol/L (3.5-5.1) Chloride Level 100 mmol/L (98-107) 109 mmol/L (98-107) Carbon Dioxide Level 29 mmol/L (21-32) 26 mmol/L (21-32) Anion Gap 8 (6-14) 7 (6-14) Blood Urea Nitrogen 11 mg/dL (7-20) 9 mg/dL (7-20) Creatinine 0.4 mg/dL (0.6-1.0) 0.5 mg/dL (0.6-1.0) Estimated GFR (Cockcroft-Gault) 175.0 135.3 Glucose Level 101 mg/dL (70-99) 105 mg/dL (70-99) Lactic Acid Level 0.8 mmol/L (0.4-2.0) Calcium Level 9.0 mg/dL (8.5-10.1) 7.4 mg/dL (8.5-10.1) Total Bilirubin 0.2 mg/dL (0.2-1.0) Direct Bilirubin 0.1 mg/dL (0.0-0.2) Aspartate Amino Transf (AST/SGOT) 19 U/L (15-37) Alanine Aminotransferase (ALT/SGPT) 27 U/L (14-59) Alkaline Phosphatase 116 U/L (46-116) Total Protein 8.1 g/dL (6.4-8.2) Albumin 3.3 g/dL (3.4-5.0) Assessment/Plan Assessment/Plan Breast cancer, possible abscess undergoing neoadjuctive chemo, started first treatment--oncologist in [place] NPO, continue abx will review with LETICIA High MD 01/09/17 0657: CONSULT Allergies Allergies: Coded Allergies: No Known Drug Allergies (Unverified , 11/26/16) Assessment/Plan Assessment/Plan pt seen and interviewed with help of family at bedside to translate will get US d/w Dr Mullins Thanks for consult DANILO PANG APRN Jan 08, 2017 08:42 LETICIA CORONADO MD Jan 09, 2017 06:57
--- NOTE | 2017-01-08 09:47 | PDOC ---
PROGRESS NOTES Chief Complaint Chief Complaint 1. LOcally advanced breast cancer s/p neoadjuvant chemo 2. R breast cellulitis and abscess 3. SIRS POA, no sepsis yet 4. Neutropenic fever 5. MIld PCM (albumin 3,3) History of Present Illness History of Present Illness Tender R breast Inspected, punctum, induration around NO fevers overnight WBC 2.5 On vanc and zosyn and ID on case PLAN: MAy check US - but likely there is drainable abscess/fluid COnt VAnc and zosyn Follow cultures TYlenol for fever NEutropenic prec LIkely will need I and D Vitals Vitals Vital Signs Date Time Temp Pulse Resp B/P (MAP) Pulse Ox O2 Delivery O2 Flow Rate FiO2 01/08/17 09:32 16 Room Air 01/08/17 09:10 100 01/08/17 08:35 75 100/51 01/08/17 07:15 98.4 98.4 Physical Exam General: Alert, Oriented X3, Cooperative, No acute distress Heart: Regular rate, Normal S1, Normal S2, No murmurs Abdomen: Normal bowel sounds, Soft, No tenderness Extremities: No clubbing, No cyanosis Skin: Other (right breast with large mass to 11 oclock area, fluctuant, tender , erythema, some drainage, central small califlower type lesion ) Labs LABS Laboratory Tests Test 01/07/17 18:35 01/08/17 03:20 White Blood Count 3.6 x10^3/uL (4.0-11.0) 2.5 x10^3/uL (4.0-11.0) Red Blood Count 4.16 x10^6/uL (3.50-5.40) 3.40 x10^6/uL (3.50-5.40) Hemoglobin 11.4 g/dL (12.0-15.5) 9.5 g/dL (12.0-15.5) Hematocrit 34.7 % (36.0-47.0) 28.7 % (36.0-47.0) Mean Corpuscular Volume 84 fL (79-100) 84 fL (79-100) Mean Corpuscular Hemoglobin 28 pg (25-35) 28 pg (25-35) Mean Corpuscular Hemoglobin Concent 33 g/dL (31-37) 33 g/dL (31-37) Red Cell Distribution Width 13.9 % (11.5-14.5) 14.0 % (11.5-14.5) Platelet Count 240 x10^3/uL (140-400) 183 x10^3/uL (140-400) Neutrophils (%) (Auto) 66 % (31-73) 58 % (31-73) Lymphocytes (%) (Auto) 29 % (24-48) 36 % (24-48) Monocytes (%) (Auto) 3 % (0-9) 4 % (0-9) Eosinophils (%) (Auto) 1 % (0-3) 2 % (0-3) Basophils (%) (Auto) 0 % (0-3) 0 % (0-3) Neutrophils # (Auto) 2.4 x10^3uL (1.8-7.7) 1.4 x10^3uL (1.8-7.7) Lymphocytes # (Auto) 1.0 x10^3/uL (1.0-4.8) 0.9 x10^3/uL (1.0-4.8) Monocytes # (Auto) 0.1 x10^3/uL (0.0-1.1) 0.1 x10^3/uL (0.0-1.1) Eosinophils # (Auto) 0.0 x10^3/uL (0.0-0.7) 0.1 x10^3/uL (0.0-0.7) Basophils # (Auto) 0.0 x10^3/uL (0.0-0.2) 0.0 x10^3/uL (0.0-0.2) Segmented Neutrophils % 44 % (35-66) Band Neutrophils % 16 % (0-9) Lymphocytes % 36 % (24-48) Monocytes % 4 % (0-10) Dohle Bodies Few Platelet Estimate Adequate (ADEQUATE) Sodium Level 137 mmol/L (136-145) 142 mmol/L (136-145) Potassium Level 4.2 mmol/L (3.5-5.1) 4.1 mmol/L (3.5-5.1) Chloride Level 100 mmol/L (98-107) 109 mmol/L (98-107) Carbon Dioxide Level 29 mmol/L (21-32) 26 mmol/L (21-32) Anion Gap 8 (6-14) 7 (6-14) Blood Urea Nitrogen 11 mg/dL (7-20) 9 mg/dL (7-20) Creatinine 0.4 mg/dL (0.6-1.0) 0.5 mg/dL (0.6-1.0) Estimated GFR (Cockcroft-Gault) 175.0 135.3 Glucose Level 101 mg/dL (70-99) 105 mg/dL (70-99) Lactic Acid Level 0.8 mmol/L (0.4-2.0) Calcium Level 9.0 mg/dL (8.5-10.1) 7.4 mg/dL (8.5-10.1) Total Bilirubin 0.2 mg/dL (0.2-1.0) Direct Bilirubin 0.1 mg/dL (0.0-0.2) Aspartate Amino Transf (AST/SGOT) 19 U/L (15-37) Alanine Aminotransferase (ALT/SGPT) 27 U/L (14-59) Alkaline Phosphatase 116 U/L (46-116) Total Protein 8.1 g/dL (6.4-8.2) Albumin 3.3 g/dL (3.4-5.0) Review of Systems Review of Systems limited - language barrier Assessment and Plan Assessmemt and Plan Problems Medical Problems: (1) Abscess Status: Acute (2) Breast cancer Status: Acute (3) Neutropenic fever Status: Acute Problems: Comment Review of Relevant I have reviewed the following items shannon (where applicable) has been applied. Labs Laboratory Tests Test 01/07/17 18:35 01/08/17 03:20 White Blood Count 3.6 x10^3/uL (4.0-11.0) 2.5 x10^3/uL (4.0-11.0) Red Blood Count 4.16 x10^6/uL (3.50-5.40) 3.40 x10^6/uL (3.50-5.40) Hemoglobin 11.4 g/dL (12.0-15.5) 9.5 g/dL (12.0-15.5) Hematocrit 34.7 % (36.0-47.0) 28.7 % (36.0-47.0) Mean Corpuscular Volume 84 fL (79-100) 84 fL (79-100) Mean Corpuscular Hemoglobin 28 pg (25-35) 28 pg (25-35) Mean Corpuscular Hemoglobin Concent 33 g/dL (31-37) 33 g/dL (31-37) Red Cell Distribution Width 13.9 % (11.5-14.5) 14.0 % (11.5-14.5) Platelet Count 240 x10^3/uL (140-400) 183 x10^3/uL (140-400) Neutrophils (%) (Auto) 66 % (31-73) 58 % (31-73) Lymphocytes (%) (Auto) 29 % (24-48) 36 % (24-48) Monocytes (%) (Auto) 3 % (0-9) 4 % (0-9) Eosinophils (%) (Auto) 1 % (0-3) 2 % (0-3) Basophils (%) (Auto) 0 % (0-3) 0 % (0-3) Neutrophils # (Auto) 2.4 x10^3uL (1.8-7.7) 1.4 x10^3uL (1.8-7.7) Lymphocytes # (Auto) 1.0 x10^3/uL (1.0-4.8) 0.9 x10^3/uL (1.0-4.8) Monocytes # (Auto) 0.1 x10^3/uL (0.0-1.1) 0.1 x10^3/uL (0.0-1.1) Eosinophils # (Auto) 0.0 x10^3/uL (0.0-0.7) 0.1 x10^3/uL (0.0-0.7) Basophils # (Auto) 0.0 x10^3/uL (0.0-0.2) 0.0 x10^3/uL (0.0-0.2) Segmented Neutrophils % 44 % (35-66) Band Neutrophils % 16 % (0-9) Lymphocytes % 36 % (24-48) Monocytes % 4 % (0-10) Dohle Bodies Few Platelet Estimate Adequate (ADEQUATE) Sodium Level 137 mmol/L (136-145) 142 mmol/L (136-145) Potassium Level 4.2 mmol/L (3.5-5.1) 4.1 mmol/L (3.5-5.1) Chloride Level 100 mmol/L (98-107) 109 mmol/L (98-107) Carbon Dioxide Level 29 mmol/L (21-32) 26 mmol/L (21-32) Anion Gap 8 (6-14) 7 (6-14) Blood Urea Nitrogen 11 mg/dL (7-20) 9 mg/dL (7-20) Creatinine 0.4 mg/dL (0.6-1.0) 0.5 mg/dL (0.6-1.0) Estimated GFR (Cockcroft-Gault) 175.0 135.3 Glucose Level 101 mg/dL (70-99) 105 mg/dL (70-99) Lactic Acid Level 0.8 mmol/L (0.4-2.0) Calcium Level 9.0 mg/dL (8.5-10.1) 7.4 mg/dL (8.5-10.1) Total Bilirubin 0.2 mg/dL (0.2-1.0) Direct Bilirubin 0.1 mg/dL (0.0-0.2) Aspartate Amino Transf (AST/SGOT) 19 U/L (15-37) Alanine Aminotransferase (ALT/SGPT) 27 U/L (14-59) Alkaline Phosphatase 116 U/L (46-116) Total Protein 8.1 g/dL (6.4-8.2) Albumin 3.3 g/dL (3.4-5.0) Laboratory Tests Test 01/07/17 18:35 01/08/17 03:20 White Blood Count 3.6 x10^3/uL (4.0-11.0) 2.5 x10^3/uL (4.0-11.0) Red Blood Count 4.16 x10^6/uL (3.50-5.40) 3.40 x10^6/uL (3.50-5.40) Hemoglobin 11.4 g/dL (12.0-15.5) 9.5 g/dL (12.0-15.5) Hematocrit 34.7 % (36.0-47.0) 28.7 % (36.0-47.0) Mean Corpuscular Volume 84 fL (79-100) 84 fL (79-100) Mean Corpuscular Hemoglobin 28 pg (25-35) 28 pg (25-35) Mean Corpuscular Hemoglobin Concent 33 g/dL (31-37) 33 g/dL (31-37) Red Cell Distribution Width 13.9 % (11.5-14.5) 14.0 % (11.5-14.5) Platelet Count 240 x10^3/uL (140-400) 183 x10^3/uL (140-400) Neutrophils (%) (Auto) 66 % (31-73) 58 % (31-73) Lymphocytes (%) (Auto) 29 % (24-48) 36 % (24-48) Monocytes (%) (Auto) 3 % (0-9) 4 % (0-9) Eosinophils (%) (Auto) 1 % (0-3) 2 % (0-3) Basophils (%) (Auto) 0 % (0-3) 0 % (0-3) Neutrophils # (Auto) 2.4 x10^3uL (1.8-7.7) 1.4 x10^3uL (1.8-7.7) Lymphocytes # (Auto) 1.0 x10^3/uL (1.0-4.8) 0.9 x10^3/uL (1.0-4.8) Monocytes # (Auto) 0.1 x10^3/uL (0.0-1.1) 0.1 x10^3/uL (0.0-1.1) Eosinophils # (Auto) 0.0 x10^3/uL (0.0-0.7) 0.1 x10^3/uL (0.0-0.7) Basophils # (Auto) 0.0 x10^3/uL (0.0-0.2) 0.0 x10^3/uL (0.0-0.2) Segmented Neutrophils % 44 % (35-66) Band Neutrophils % 16 % (0-9) Lymphocytes % 36 % (24-48) Monocytes % 4 % (0-10) Dohle Bodies Few Platelet Estimate Adequate (ADEQUATE) Sodium Level 137 mmol/L (136-145) 142 mmol/L (136-145) Potassium Level 4.2 mmol/L (3.5-5.1) 4.1 mmol/L (3.5-5.1) Chloride Level 100 mmol/L (98-107) 109 mmol/L (98-107) Carbon Dioxide Level 29 mmol/L (21-32) 26 mmol/L (21-32) Anion Gap 8 (6-14) 7 (6-14) Blood Urea Nitrogen 11 mg/dL (7-20) 9 mg/dL (7-20) Creatinine 0.4 mg/dL (0.6-1.0) 0.5 mg/dL (0.6-1.0) Estimated GFR (Cockcroft-Gault) 175.0 135.3 Glucose Level 101 mg/dL (70-99) 105 mg/dL (70-99) Lactic Acid Level 0.8 mmol/L (0.4-2.0) Calcium Level 9.0 mg/dL (8.5-10.1) 7.4 mg/dL (8.5-10.1) Total Bilirubin 0.2 mg/dL (0.2-1.0) Direct Bilirubin 0.1 mg/dL (0.0-0.2) Aspartate Amino Transf (AST/SGOT) 19 U/L (15-37) Alanine Aminotransferase (ALT/SGPT) 27 U/L (14-59) Alkaline Phosphatase 116 U/L (46-116) Total Protein 8.1 g/dL (6.4-8.2) Albumin 3.3 g/dL (3.4-5.0) Medications Current Medications Fentanyl Citrate (Fentanyl 2ml Vial) 25 mcg PRN Q15MIN PRN IV PAIN GREATER THAN 3/10 Last administered on 01/07/17 18:47; Start 01/07/17 at 18:30; Stop 01/08 at 18:29 Sodium Chloride 1,000 ml @ 1,000 mls/hr Q1H IV Last administered on 01/07/17 18:27; Start 01/07/17 at 18:27; Stop 01/07/17 at 19:26; Status DC Vancomycin HCl (Vanco Per Pharmacy) 1 each PRN DAILY PRN MC SEE COMMENTS Last administered on 01/08/17 00:39; Start 01/07/17 at 20:45 Piperacillin Sod/ Tazobactam Sod (Zosyn Per Pharmacy) 1 each PRN DAILY PRN MC SEE COMMENTS; Start 01/07/17 at 20:45 Vancomycin HCl 1.5 gm/Sodium Chloride 500 ml @ 250 mls/hr 1X ONCE IV Last administered on 01/07/17 21:05; Start 01/07/17 at 20:45; Stop 01/07/17 at 22:44; Status DC Piperacillin Sod/ Tazobactam Sod 4.5 gm/Sodium Chloride 100 ml @ 200 mls/hr 1X ONCE IV Last administered on 01/07/17 20:50; Start 01/07/17 at 20:45; Stop 01/07/17 at 21:14; Status DC Ondansetron HCl (Zofran) 4 mg PRN Q8HRS PRN IV NAUSEA/VOMITING; Start 01/07/17 at 21:45; Stop 01/07/17 at 23:01; Status DC Morphine Sulfate 4 mg PRN Q2HR PRN IV SEVERE PAIN; Start 01/07/17 at 21:45; Stop 01/08/17 at 21:44 Sodium Chloride 1,000 ml @ 125 mls/hr Q8H IV Last administered on 01/08/17 05: 45; Start 01/07/17 at 21:43; Stop 01/08/17 at 21:42 Acetaminophen (Tylenol) 650 mg PRN Q4HRS PRN PO FEVER; Start 01/07/17 at 21:45; Stop 01/08/17 at 21:44 Vancomycin HCl 1 gm/Sodium Chloride 250 ml @ 250 mls/hr Q8HRS IV Last administered on 01/08/17 05:46; Start 01/08/17 at 06:00 Piperacillin Sod/ Tazobactam Sod 4.5 gm/Sodium Chloride 100 ml @ 200 mls/hr Q6HRS IV Last administered on 01/08/17 05:45; Start 01/08/17 at 00:00 Acetaminophen (Tylenol) 325 mg PRN Q6HRS PRN PO MILD PAIN / TEMP; Start at 23:00 Acetaminophen/ Hydrocodone Bitart (Lortab 5/325) 1 tab PRN Q6HRS PRN PO MODERATE TO SEVERE PAIN Last administered on 01/08/17 08:37; Start 01/07/17 at 23 :00 Hydralazine HCl (Apresoline) 10 mg PRN Q4HRS PRN IVP ELEVATED BP, SEE COMMENTS ; Start 01/07/17 at 23:00 Ondansetron HCl (Zofran) 4 mg PRN Q8HRS PRN IV NAUSEA/VOMITING; Start 01/07/17 at 23:00; Stop 01/08/17 at 07:36; Status DC Albuterol Sulfate (Ventolin Neb Soln) 2.5 mg PRN Q4HRS PRN NEB SHORTNESS OF BREATH; Start 01/07/17 at 23:00 Vancomycin HCl 1 each 1X ONCE MC ; Start 01/08/17 at 21:30; Stop 01/08/17 at 21: 31 Ondansetron HCl (Zofran) 4 mg PRN Q6HRS PRN IV NAUSEA/VOMITING; Start 01/08/17 at 07:35 Acetaminophen/ Hydrocodone Bitart (Lortab 5/325) 1 tab PRN TID PRN PO pain; Start 01/08/17 at 07:45 Lisinopril (Prinivil) 5 mg DAILY PO ; Start 01/08/17 at 09:00 Active Scripts Active Reported Thorofare 5-325 Tablet (Acetaminophen/Hydrocodone Bitart) 1 Each Tablet 1-2 Tab PO Q4-6HRS LAST DOSE GIVEN: DATE: today TIME: 545 pm so next dose at 945 pm as needed for pain Lisinopril 5 Mg Tablet 5 Mg PO DAILY Vitals/I & O Vital Sign - Last 24 Hours 01/07/17 01/07/17 01/07/17 01/07/17 17:36 17:51 18:21 18:47 Temp 98.3 98.3 Pulse 83 84 84 Resp 18 20 18 18 B/P (MAP) 134/73 (93) 119/67 (84) 155/69 (97) Pulse Ox 99 98 99 98 O2 Delivery Room Air Room Air Room Air Room Air 01/07/17 01/07/17 01/07/17 01/07/17 18:51 19:17 19:21 19:36 Pulse 86 82 82 Resp 20 18 20 20 B/P (MAP) 152/67 (95) 115/60 (78) 123/71 (88) Pulse Ox 99 97 99 99 O2 Delivery Room Air Room Air Room Air Room Air 01/07/17 01/07/17 01/07/17 01/07/17 19:51 20:51 21:51 22:25 Pulse 84 79 78 Resp 18 18 18 B/P (MAP) 123/66 (85) 125/71 (89) 119/59 (79) Pulse Ox 98 97 99 O2 Delivery Room Air Room Air Room Air Room Air 01/07/17 01/07/17 01/08/17 01/08/17 23:00 23:00 03:00 07:15 Temp 97.9 97.9 97.9 98.4 97.9 97.9 97.9 98.4 Pulse 81 81 70 75 Resp 18 18 18 16 B/P (MAP) 110/60 (77) 110/60 (77) 105/64 (78) 100/51 (67) Pulse Ox 92 92 90 96 O2 Delivery Room Air Room Air Room Air Room Air 01/08/17 01/08/17 01/08/17 01/08/17 08:35 08:37 09:10 09:32 Pulse 75 Resp 16 16 B/P (MAP) 100/51 Pulse Ox 100 O2 Delivery Room Air Room Air Room Air Intake and Output 01/07/17 01/07/17 01/08/17 14:59 22:59 06:59 Intake Total 1000 ml 300 ml Balance 1000 ml 300 ml CONNOR ORTIZ MD Jan 08, 2017 09:47
[2017-01-08 11:15] VITALS: BP 105/64
--- NOTE | 2017-01-08 12:17 | RAD ---
Right breast ultrasound, 01/08/2017: History: Mass. The area of clinical concern in the upper outer quadrant of the right breast extending into the low axillary region was carefully scanned. There is a large heterogeneous mass. It measures 5.5 x 4.9 x 4.0 cm. Much of the mass demonstrates hypervascularity compatible with a solid process. There is a small superficial component which appears to be cystic. This measures approximately 1 cm. This mass appears to have increased in size since the CT study of 11/24/2016. There is a given history of breast cancer. IMPRESSION: Enlarging right upper outer breast mass extending into the right axilla compatible with a breast malignancy.
[2017-01-08 15:20] VITALS: BP 99/60
--- NOTE | 2017-01-08 18:49 | PDOC2 ---
CONSULT Date of Consult Date of Consult DATE: 01/08/17 TIME: 18:39 Reason for Consult Reason for Consult: Breast cancer on neoadjuvant chemotherapy admitted for neutropenic fever Referring Physician Referring Physician: Dr Greenberg Identification/Chief Complaint Chief Complaint Breast cancer Problems: History of Present Illness Reason for Visit: The patient presented in September 2016 with a breast mass. Mammogram on 09/16/2016 revealed a 3.3 cm breast mass in the upper outer quadrant of the right breast. There was evidence of enlarged lymph nodes in the right axilla. Biopsy of the right breast mass on 10/08/2016 revealed invasive high-grade ductal carcinoma. Biopsy of the right axillary lymph nodes revealed metastatic poorly differentiated adenocarcinoma. ER negative TX negative and HER-2/hemant negative. She was evaluated by oncologist at [facility] and she was started on neoadjuvant chemotherapy with Adriamycin and Cytoxan. The patient reports that she received chemotherapy about one week ago. She is now admitted with neutropenic fever and an abscess in the right breast. I was asked to see the patient for further management of neutropenic fever. The cancer has been diagnosed as a T2 N1 M0 stage IIB breast cancer Past Medical History Cardiovascular: HTN Heme/Onc: Cancer (breast) Past Surgical History Past Surgical History: Family History Family History: Other (patient has strong family history of cancer. Sr. had ovarian cancer at the age of 37. Mother had ovarian cancer at the age of 50.) Social History ALCOHOL: none Drugs: None Lives: with Family Current Problem List Problem List Problems Medical Problems: (1) Abscess Status: Acute (2) Breast cancer Status: Acute (3) Neutropenic fever Status: Acute Current Medications Current Medications Current Medications Fentanyl Citrate (Fentanyl 2ml Vial) 25 mcg PRN Q15MIN PRN IV PAIN GREATER THAN 3/10 Last administered on 01/07/17 18:47; Start 01/07/17 at 18:30; Stop 01/08 at 18:29; Status DC Sodium Chloride 1,000 ml @ 1,000 mls/hr Q1H IV Last administered on 01/07/17 18:27; Start 01/07/17 at 18:27; Stop 01/07/17 at 19:26; Status DC Vancomycin HCl (Vanco Per Pharmacy) 1 each PRN DAILY PRN MC SEE COMMENTS Last administered on 01/08/17 00:39; Start 01/07/17 at 20:45 Piperacillin Sod/ Tazobactam Sod (Zosyn Per Pharmacy) 1 each PRN DAILY PRN MC SEE COMMENTS; Start 01/07/17 at 20:45 Vancomycin HCl 1.5 gm/Sodium Chloride 500 ml @ 250 mls/hr 1X ONCE IV Last administered on 01/07/17 21:05; Start 01/07/17 at 20:45; Stop 01/07/17 at 22:44; Status DC Piperacillin Sod/ Tazobactam Sod 4.5 gm/Sodium Chloride 100 ml @ 200 mls/hr 1X ONCE IV Last administered on 01/07/17 20:50; Start 01/07/17 at 20:45; Stop 01/07/17 at 21:14; Status DC Ondansetron HCl (Zofran) 4 mg PRN Q8HRS PRN IV NAUSEA/VOMITING; Start 01/07/17 at 21:45; Stop 01/07/17 at 23:01; Status DC Morphine Sulfate 4 mg PRN Q2HR PRN IV SEVERE PAIN; Start 01/07/17 at 21:45; Stop 01/08/17 at 21:44 Sodium Chloride 1,000 ml @ 125 mls/hr Q8H IV Last administered on 01/08/17 05: 45; Start 01/07/17 at 21:43; Stop 01/08/17 at 21:42 Acetaminophen (Tylenol) 650 mg PRN Q4HRS PRN PO FEVER; Start 01/07/17 at 21:45; Stop 01/08/17 at 21:44 Vancomycin HCl 1 gm/Sodium Chloride 250 ml @ 250 mls/hr Q8HRS IV Last administered on 01/08/17 13:53; Start 01/08/17 at 06:00 Piperacillin Sod/ Tazobactam Sod 4.5 gm/Sodium Chloride 100 ml @ 200 mls/hr Q6HRS IV Last administered on 01/08/17 12:11; Start 01/08/17 at 00:00 Acetaminophen (Tylenol) 325 mg PRN Q6HRS PRN PO MILD PAIN / TEMP; Start at 23:00 Acetaminophen/ Hydrocodone Bitart (Lortab 5/325) 1 tab PRN Q6HRS PRN PO MODERATE TO SEVERE PAIN Last administered on 7/6/17at 08:37; Start 01/07/17 at 23 :00 Hydralazine HCl (Apresoline) 10 mg PRN Q4HRS PRN IVP ELEVATED BP, SEE COMMENTS ; Start 01/07/17 at 23:00 Ondansetron HCl (Zofran) 4 mg PRN Q8HRS PRN IV NAUSEA/VOMITING; Start 01/07/17 at 23:00; Stop 01/08/17 at 07:36; Status DC Albuterol Sulfate (Ventolin Neb Soln) 2.5 mg PRN Q4HRS PRN NEB SHORTNESS OF BREATH; Start 01/07/17 at 23:00 Vancomycin HCl 1 each 1X ONCE MC ; Start 01/08/17 at 21:30; Stop 01/08/17 at 21: 31 Ondansetron HCl (Zofran) 4 mg PRN Q6HRS PRN IV NAUSEA/VOMITING; Start 01/08/17 at 07:35 Acetaminophen/ Hydrocodone Bitart (Lortab 5/325) 1 tab PRN TID PRN PO pain; Start 01/08/17 at 07:45; Stop 01/08/17 at 10:58; Status DC Lisinopril (Prinivil) 5 mg DAILY PO ; Start 01/08/17 at 09:00 Tbo-Filgrastim (Granix) 300 mcg QHS SQ ; Start 01/08/17 at 21:00 Active Scripts Active Reported [place] 5-325 Tablet (Acetaminophen/Hydrocodone Bitart) 1 Each Tablet 1-2 Tab PO Q4-6HRS LAST DOSE GIVEN: DATE: today TIME: 545 pm so next dose at 945 pm as needed for pain Lisinopril 5 Mg Tablet 5 Mg PO DAILY Allergies Allergies: Coded Allergies: No Known Drug Allergies (Unverified , 11/26/16) ROS General: YES: Fatigue PSYCHOLOGICAL ROS: YES: Irritablity, No: Anxiety, Concentration difficultie, Decreased libido, Depression, Memory difficulties, Mood Swings, Obsessive thoughts, Physical abuse, Sleep disturbances Eyes: No Blurry vision, No Decreased vision, No Double vision, No Dry eyes, No Excessive tearing, No Eye Pain, No Itchy Eyes, No Loss of vision, No Photophobia , No Scotomata, No Uses contacts, No Uses glasses, No Other HEENT: No: Heacaches, Visual Changes, Hearing change, Nasal congestion, Nasal discharge, Oral lesions, Sinus pain, Sore Throat, Epistaxis, Sneezing, Snoring, Tinnitus, Vertigo, Vocal changes, Other ALLERGY AND IMMUNOLOGY: No: Hives, Insect Bite Sensitivity, Itchy/Watery Eyes, Nasal Congestion, Post Nasal Drip, Seasonal Allergies, Other Hematological and Lymphatic: YES: Swollen Lymph Nodes ENDOCRINE: No: Breast Changes, Galactorrhea, Hair Pattern Changes, Hot Flashes , Malaise/lethargy, Mood Swings, Palpitations, Polydipsia/polyuria, Skin Changes , Temperature Intolerance, Unexpected Weight Changes, Other Breast: New/Changing Breast Lumps Respiratory: No: Cough, Hemoptysis, Orthopnea, Pleuritic Pain, Shortness of breath, SOB with excertion, Sputum Changes, Stridor, Tachypnea, Wheezing, Other Cardiovascular: No Chest Pain, No Palpitations, No Orthopnea, No Paroxysmal Noc. Dyspnea, No Edema, No Lt Headedness, No Other Gastrointestinal: No Nausea, No Vomiting, No Abdominal Pain, No Diarrhea, No Constipation, No Melena, No Hematochezia, No Other Genitourinary: No Dysuria, No Frequency, No Incontinence, No Hematuria, No Retention, No Discharge, No Urgency, No Pain, No Flank Pain, No Other, No , No , No , No , No , No , No Musculoskeletal: No Gait Disturbance, No Joint Pain, No Joint Stiffness, No Joint Swelling, No Muscle Pain, No Muscular Weakness, No Pain In:, No Swelling In:, No Other Neurological: No Behavorial Changes, No Bowel/Bladder ControlChng, No Confusion , No Dizziness, No Gait Disturbance, No Headaches, No Impaired Coord/balance, No Memory Loss, No Numbness/Tingling, No Seizures, No Speech Problems, No Tremors, No Visual Changes, No Weakness, No Other Skin: No Dry Skin, No Eczema, No Hair Changes, No Lumps, No Mole Changes, No Mottling, No Nail Changes, No Pruritus, No Rash, No Skin Lesion Changes, No Other, No Acne Physical Exam General: Alert, Oriented X3, Other (no masses in the left breast. Right breast reveals mass in the upper outer quadrant and possible abscess.) HEENT: Atraumatic Lungs: Clear to auscultation Heart: Normal S1, Normal S2 Abdomen: Soft, No tenderness Extremities: No clubbing Skin: No rashes Neuro: Normal speech Psych/Mental Status: Mental status NL MUSCULOSKELETAL: No joint tenderness Vitals VITALS Vital Signs Date Time Temp Pulse Resp B/P (MAP) Pulse Ox O2 Delivery O2 Flow Rate FiO2 01/08/17 15:20 98.2 69 20 99/60 (73) 97 Room Air 98.2 Labs Labs Laboratory Tests Test 01/07/17 18:35 01/08/17 03:20 White Blood Count 3.6 x10^3/uL (4.0-11.0) 2.5 x10^3/uL (4.0-11.0) Red Blood Count 4.16 x10^6/uL (3.50-5.40) 3.40 x10^6/uL (3.50-5.40) Hemoglobin 11.4 g/dL (12.0-15.5) 9.5 g/dL (12.0-15.5) Hematocrit 34.7 % (36.0-47.0) 28.7 % (36.0-47.0) Mean Corpuscular Volume 84 fL (79-100) 84 fL (79-100) Mean Corpuscular Hemoglobin 28 pg (25-35) 28 pg (25-35) Mean Corpuscular Hemoglobin Concent 33 g/dL (31-37) 33 g/dL (31-37) Red Cell Distribution Width 13.9 % (11.5-14.5) 14.0 % (11.5-14.5) Platelet Count 240 x10^3/uL (140-400) 183 x10^3/uL (140-400) Neutrophils (%) (Auto) 66 % (31-73) 58 % (31-73) Lymphocytes (%) (Auto) 29 % (24-48) 36 % (24-48) Monocytes (%) (Auto) 3 % (0-9) 4 % (0-9) Eosinophils (%) (Auto) 1 % (0-3) 2 % (0-3) Basophils (%) (Auto) 0 % (0-3) 0 % (0-3) Neutrophils # (Auto) 2.4 x10^3uL (1.8-7.7) 1.4 x10^3uL (1.8-7.7) Lymphocytes # (Auto) 1.0 x10^3/uL (1.0-4.8) 0.9 x10^3/uL (1.0-4.8) Monocytes # (Auto) 0.1 x10^3/uL (0.0-1.1) 0.1 x10^3/uL (0.0-1.1) Eosinophils # (Auto) 0.0 x10^3/uL (0.0-0.7) 0.1 x10^3/uL (0.0-0.7) Basophils # (Auto) 0.0 x10^3/uL (0.0-0.2) 0.0 x10^3/uL (0.0-0.2) Segmented Neutrophils % 44 % (35-66) Band Neutrophils % 16 % (0-9) Lymphocytes % 36 % (24-48) Monocytes % 4 % (0-10) Dohle Bodies Few Platelet Estimate Adequate (ADEQUATE) Sodium Level 137 mmol/L (136-145) 142 mmol/L (136-145) Potassium Level 4.2 mmol/L (3.5-5.1) 4.1 mmol/L (3.5-5.1) Chloride Level 100 mmol/L (98-107) 109 mmol/L (98-107) Carbon Dioxide Level 29 mmol/L (21-32) 26 mmol/L (21-32) Anion Gap 8 (6-14) 7 (6-14) Blood Urea Nitrogen 11 mg/dL (7-20) 9 mg/dL (7-20) Creatinine 0.4 mg/dL (0.6-1.0) 0.5 mg/dL (0.6-1.0) Estimated GFR (Cockcroft-Gault) 175.0 135.3 Glucose Level 101 mg/dL (70-99) 105 mg/dL (70-99) Lactic Acid Level 0.8 mmol/L (0.4-2.0) Calcium Level 9.0 mg/dL (8.5-10.1) 7.4 mg/dL (8.5-10.1) Total Bilirubin 0.2 mg/dL (0.2-1.0) Direct Bilirubin 0.1 mg/dL (0.0-0.2) Aspartate Amino Transf (AST/SGOT) 19 U/L (15-37) Alanine Aminotransferase (ALT/SGPT) 27 U/L (14-59) Alkaline Phosphatase 116 U/L (46-116) Total Protein 8.1 g/dL (6.4-8.2) Albumin 3.3 g/dL (3.4-5.0) Laboratory Tests Test 01/08/17 03:20 White Blood Count 2.5 x10^3/uL (4.0-11.0) Red Blood Count 3.40 x10^6/uL (3.50-5.40) Hemoglobin 9.5 g/dL (12.0-15.5) Hematocrit 28.7 % (36.0-47.0) Mean Corpuscular Volume 84 fL (79-100) Mean Corpuscular Hemoglobin 28 pg (25-35) Mean Corpuscular Hemoglobin Concent 33 g/dL (31-37) Red Cell Distribution Width 14.0 % (11.5-14.5) Platelet Count 183 x10^3/uL (140-400) Neutrophils (%) (Auto) 58 % (31-73) Lymphocytes (%) (Auto) 36 % (24-48) Monocytes (%) (Auto) 4 % (0-9) Eosinophils (%) (Auto) 2 % (0-3) Basophils (%) (Auto) 0 % (0-3) Neutrophils # (Auto) 1.4 x10^3uL (1.8-7.7) Lymphocytes # (Auto) 0.9 x10^3/uL (1.0-4.8) Monocytes # (Auto) 0.1 x10^3/uL (0.0-1.1) Eosinophils # (Auto) 0.1 x10^3/uL (0.0-0.7) Basophils # (Auto) 0.0 x10^3/uL (0.0-0.2) Sodium Level 142 mmol/L (136-145) Potassium Level 4.1 mmol/L (3.5-5.1) Chloride Level 109 mmol/L (98-107) Carbon Dioxide Level 26 mmol/L (21-32) Anion Gap 7 (6-14) Blood Urea Nitrogen 9 mg/dL (7-20) Creatinine 0.5 mg/dL (0.6-1.0) Estimated GFR (Cockcroft-Gault) 135.3 Glucose Level 105 mg/dL (70-99) Calcium Level 7.4 mg/dL (8.5-10.1) Assessment/Plan Assessment/Plan Assessment and plan: 1. Triple negative breast cancer on neoadjuvant chemotherapy by her oncologist in [facility]. She is now admitted for toxicities of her first cycle of chemotherapy with Adriamycin and Cytoxan. She'll follow up with her oncologist upon discharge. #2 neutropenia due to chemotherapy. I will start her on granix 3. Right breast mass/abscess. Appreciate surgery consultation. LEXUS MURILLO MD Jan 08, 2017 18:49
[2017-01-08 19:05] VITALS: BP 104/62
[2017-01-08] MEDS: TBO-FILGRASTIM 300 MCG/0.5 ML SYRINGE. SQ SCH (20:37)
[2017-01-08] MEDS: ENOXAPARIN 40 MG/0.4 ML SYRINGE. SQ SCH (22:23)
[2017-01-08 23:09] VITALS: BP 114/65
[2017-01-09] MEDS: PIPERACILLIN/TAZOBACTAM 4.5 GM in IV NORMAL SALINE 100ML 100 ML IV SCH ×4 (00:45→20:25)
[2017-01-09] MEDS: VANCOMYCIN PER PHARMACY MC PRN ×2 (01:01→10:59)
[2017-01-09 03:14] VITALS: BP 102/51
[2017-01-09] MEDS: VANCOMYCIN 1.25 GM in IV NORMAL SALINE 250ML 250 ML IV SCH ×3 (06:31→22:07)
[2017-01-09 07:00] VITALS: BP 97/61
--- NOTE | 2017-01-09 08:57 | PDOC ---
PROGRESS NOTES Chief Complaint Chief Complaint 1. Locally advanced breast cancer s/p neoadjuvant chemo 2. R breast cellulitis and abscess 3. SIRS POA, no sepsis yet 4. Neutropenic fever 5. Mild PCM (albumin 3,3) History of Present Illness History of Present Illness Patient is doing well this am; eager to be seen by surgery and heme/onc. Vitals Vitals Vital Signs Date Time Temp Pulse Resp B/P (MAP) Pulse Ox O2 Delivery O2 Flow Rate FiO2 01/09/17 07:00 98.9 68 14 97/61 (73) 98 Room Air 98.9 Physical Exam General: Alert, Oriented X3, Other (no masses in the left breast. Right breast reveals mass in the upper outer quadrant and possible abscess.) Heart: Normal S1, Normal S2 Abdomen: Soft, No tenderness Extremities: No clubbing Skin: No rashes Labs LABS Laboratory Tests Test 01/08/17 21:40 Vancomycin Level Trough 9.0 mcg/mL (10.0-20.0) Vancomycin Last Dose Date 01/08/17 Vancomycin Last Dose Time 1400 Review of Systems Review of Systems Patient denies any acute complaints; no n/v, acute pain. Assessment and Plan Assessmemt and Plan 1. Locally advanced breast cancer s/p neoadjuvant chemo 2. R breast cellulitis and abscess 3. SIRS POA, no sepsis yet 4. Neutropenic fever 5. Mild PCM (albumin 3,3) PLAN: 1. U/S shows enlarging R UOQ breast abscess 2. Surgery and heme/onc consulted 3. Cont Vanc and zosyn 4. Following cultures 5. Tylenol for fever 6. negative cultures after 1 day 7. Discussed plan with patient and nursing staff Problems: Comment Review of Relevant I have reviewed the following items shannon (where applicable) has been applied. Labs Laboratory Tests Test 01/07/17 18:35 01/08/17 03:20 01/08/17 21:40 White Blood Count 3.6 x10^3/uL (4.0-11.0) 2.5 x10^3/uL (4.0-11.0) Red Blood Count 4.16 x10^6/uL (3.50-5.40) 3.40 x10^6/uL (3.50-5.40) Hemoglobin 11.4 g/dL (12.0-15.5) 9.5 g/dL (12.0-15.5) Hematocrit 34.7 % (36.0-47.0) 28.7 % (36.0-47.0) Mean Corpuscular Volume 84 fL (79-100) 84 fL (79-100) Mean Corpuscular Hemoglobin 28 pg (25-35) 28 pg (25-35) Mean Corpuscular Hemoglobin Concent 33 g/dL (31-37) 33 g/dL (31-37) Red Cell Distribution Width 13.9 % (11.5-14.5) 14.0 % (11.5-14.5) Platelet Count 240 x10^3/uL (140-400) 183 x10^3/uL (140-400) Neutrophils (%) (Auto) 66 % (31-73) 58 % (31-73) Lymphocytes (%) (Auto) 29 % (24-48) 36 % (24-48) Monocytes (%) (Auto) 3 % (0-9) 4 % (0-9) Eosinophils (%) (Auto) 1 % (0-3) 2 % (0-3) Basophils (%) (Auto) 0 % (0-3) 0 % (0-3) Neutrophils # (Auto) 2.4 x10^3uL (1.8-7.7) 1.4 x10^3uL (1.8-7.7) Lymphocytes # (Auto) 1.0 x10^3/uL (1.0-4.8) 0.9 x10^3/uL (1.0-4.8) Monocytes # (Auto) 0.1 x10^3/uL (0.0-1.1) 0.1 x10^3/uL (0.0-1.1) Eosinophils # (Auto) 0.0 x10^3/uL (0.0-0.7) 0.1 x10^3/uL (0.0-0.7) Basophils # (Auto) 0.0 x10^3/uL (0.0-0.2) 0.0 x10^3/uL (0.0-0.2) Segmented Neutrophils % 44 % (35-66) Band Neutrophils % 16 % (0-9) Lymphocytes % 36 % (24-48) Monocytes % 4 % (0-10) Dohle Bodies Few Platelet Estimate Adequate (ADEQUATE) Sodium Level 137 mmol/L (136-145) 142 mmol/L (136-145) Potassium Level 4.2 mmol/L (3.5-5.1) 4.1 mmol/L (3.5-5.1) Chloride Level 100 mmol/L (98-107) 109 mmol/L (98-107) Carbon Dioxide Level 29 mmol/L (21-32) 26 mmol/L (21-32) Anion Gap 8 (6-14) 7 (6-14) Blood Urea Nitrogen 11 mg/dL (7-20) 9 mg/dL (7-20) Creatinine 0.4 mg/dL (0.6-1.0) 0.5 mg/dL (0.6-1.0) Estimated GFR (Cockcroft-Gault) 175.0 135.3 Glucose Level 101 mg/dL (70-99) 105 mg/dL (70-99) Lactic Acid Level 0.8 mmol/L (0.4-2.0) Calcium Level 9.0 mg/dL (8.5-10.1) 7.4 mg/dL (8.5-10.1) Total Bilirubin 0.2 mg/dL (0.2-1.0) Direct Bilirubin 0.1 mg/dL (0.0-0.2) Aspartate Amino Transf (AST/SGOT) 19 U/L (15-37) Alanine Aminotransferase (ALT/SGPT) 27 U/L (14-59) Alkaline Phosphatase 116 U/L (46-116) Total Protein 8.1 g/dL (6.4-8.2) Albumin 3.3 g/dL (3.4-5.0) Vancomycin Level Trough 9.0 mcg/mL (10.0-20.0) Vancomycin Last Dose Date 01/08/17 Vancomycin Last Dose Time 1400 Laboratory Tests Test 01/08/17 21:40 Vancomycin Level Trough 9.0 mcg/mL (10.0-20.0) Vancomycin Last Dose Date 01/08/17 Vancomycin Last Dose Time 1400 Microbiology 01/07/17 Blood Culture - Preliminary, Resulted NO GROWTH AFTER 1 DAY Medications Current Medications Fentanyl Citrate (Fentanyl 2ml Vial) 25 mcg PRN Q15MIN PRN IV PAIN GREATER THAN 3/10 Last administered on 01/07/17 18:47; Start 01/07/17 at 18:30; Stop 01/08 at 18:29; Status DC Sodium Chloride 1,000 ml @ 1,000 mls/hr Q1H IV Last administered on 01/07/17 18:27; Start 01/07/17 at 18:27; Stop 01/07/17 at 19:26; Status DC Vancomycin HCl (Vanco Per Pharmacy) 1 each PRN DAILY PRN MC SEE COMMENTS Last administered on 01/09/17 01:01; Start 01/07/17 at 20:45 Piperacillin Sod/ Tazobactam Sod (Zosyn Per Pharmacy) 1 each PRN DAILY PRN MC SEE COMMENTS; Start 01/07/17 at 20:45 Vancomycin HCl 1.5 gm/Sodium Chloride 500 ml @ 250 mls/hr 1X ONCE IV Last administered on 01/07/17 21:05; Start 01/07/17 at 20:45; Stop 01/07/17 at 22:44; Status DC Piperacillin Sod/ Tazobactam Sod 4.5 gm/Sodium Chloride 100 ml @ 200 mls/hr 1X ONCE IV Last administered on 01/07/17 20:50; Start 01/07/17 at 20:45; Stop 01/07/17 at 21:14; Status DC Ondansetron HCl (Zofran) 4 mg PRN Q8HRS PRN IV NAUSEA/VOMITING; Start 01/07/17 at 21:45; Stop 01/07/17 at 23:01; Status DC Morphine Sulfate 4 mg PRN Q2HR PRN IV SEVERE PAIN; Start 01/07/17 at 21:45; Stop 01/08/17 at 21:44; Status DC Sodium Chloride 1,000 ml @ 125 mls/hr Q8H IV Last administered on 01/08/17 05: 45; Start 01/07/17 at 21:43; Stop 01/08/17 at 21:42; Status DC Acetaminophen (Tylenol) 650 mg PRN Q4HRS PRN PO FEVER; Start 01/07/17 at 21:45; Stop 01/08/17 at 21:44; Status DC Vancomycin HCl 1 gm/Sodium Chloride 250 ml @ 250 mls/hr Q8HRS IV Last administered on 01/08/17 22:22; Start 01/08/17 at 06:00; Stop 01/09/17 at 01:00; Status DC Piperacillin Sod/ Tazobactam Sod 4.5 gm/Sodium Chloride 100 ml @ 200 mls/hr Q6HRS IV Last administered on 01/09/17 05:56; Start 01/08/17 at 00:00 Acetaminophen (Tylenol) 325 mg PRN Q6HRS PRN PO MILD PAIN / TEMP; Start at 23:00 Acetaminophen/ Hydrocodone Bitart (Lortab 5/325) 1 tab PRN Q6HRS PRN PO MODERATE TO SEVERE PAIN Last administered on 01/08/17 20:37; Start 01/07/17 at 23 :00 Hydralazine HCl (Apresoline) 10 mg PRN Q4HRS PRN IVP ELEVATED BP, SEE COMMENTS ; Start 01/07/17 at 23:00 Ondansetron HCl (Zofran) 4 mg PRN Q8HRS PRN IV NAUSEA/VOMITING; Start 01/07/17 at 23:00; Stop 01/08/17 at 07:36; Status DC Albuterol Sulfate (Ventolin Neb Soln) 2.5 mg PRN Q4HRS PRN NEB SHORTNESS OF BREATH; Start 01/07/17 at 23:00 Vancomycin HCl 1 each 1X ONCE MC Last administered on 01/08/17 21:30; Start at 21:30; Stop 01/08/17 at 21:31; Status DC Ondansetron HCl (Zofran) 4 mg PRN Q6HRS PRN IV NAUSEA/VOMITING; Start 01/08/17 at 07:35 Acetaminophen/ Hydrocodone Bitart (Lortab 5/325) 1 tab PRN TID PRN PO pain; Start 01/08/17 at 07:45; Stop 01/08/17 at 10:58; Status DC Lisinopril (Prinivil) 5 mg DAILY PO ; Start 01/08/17 at 09:00 Tbo-Filgrastim (Granix) 300 mcg QHS SQ Last administered on 01/08/17 20:37; Start 01/08/17 at 21:00 Enoxaparin Sodium (Lovenox 40mg Syringe) 40 mg QHS SQ Last administered on 22:23; Start 01/08/17 at 21:30 Vancomycin HCl 1.25 gm/Sodium Chloride 250 ml @ 167 mls/hr Q8HRS IV Last administered on 01/09/17 06:31; Start 01/09/17 at 06:00 Vancomycin HCl 1 each 1X ONCE MC ; Start 01/10/17 at 05:30; Stop 01/10/17 at 05: 31 Active Scripts Active Reported [place] 5-325 Tablet (Acetaminophen/Hydrocodone Bitart) 1 Each Tablet 1-2 Tab PO Q4-6HRS LAST DOSE GIVEN: DATE: today TIME: 545 pm so next dose at 945 pm as needed for pain Lisinopril 5 Mg Tablet 5 Mg PO DAILY Vitals/I & O Vital Sign - Last 24 Hours 01/08/17 01/08/17 01/08/17 01/08/17 09:10 11:15 15:20 19:05 Temp 98.4 98.2 97.9 98.4 98.2 97.9 Pulse 71 69 84 Resp 18 20 18 B/P (MAP) 105/64 (78) 99/60 (73) 104/62 (76) Pulse Ox 100 96 97 97 O2 Delivery Room Air Room Air Room Air Room Air 01/08/17 01/08/17 01/08/17 01/08/17 20:30 20:37 21:40 23:09 Temp 98.1 98.1 Pulse 66 Resp 18 18 18 B/P (MAP) 114/65 (81) Pulse Ox 97 97 97 O2 Delivery Room Air Room Air Room Air Room Air 01/09/17 01/09/17 03:14 07:00 Temp 97.7 98.9 97.7 98.9 Pulse 61 68 Resp 16 14 B/P (MAP) 102/51 (68) 97/61 (73) Pulse Ox 96 98 O2 Delivery Room Air Room Air Intake and Output 01/08/17 01/08/17 01/09/17 14:59 22:59 06:59 Intake Total 240 ml 750 ml Balance 240 ml 750 ml CASTLENIAL K III DO Jan 09, 2017 08:57
[2017-01-09] MEDS: LISINOPRIL 5 MG TABLET. PO SCH (09:00)
[2017-01-09 11:00] VITALS: BP 104/56
[2017-01-09] MEDS: HYDROcodone/APAP 5/325MG 1 TAB TABLET PO PRN (11:24)
--- NOTE | 2017-01-09 14:39 | PDOC ---
Provider Note Provider Note SURG no drainable fluid by US no surg recs will sign off please call if needed Thank you. LETICIA CORONADO MD Jan 09, 2017 14:39
[2017-01-09 15:00] VITALS: BP 111/54
--- NOTE | 2017-01-09 16:01 | PDOC ---
PROGRESS NOTES Subjective Subjective c/c - f/u of breast cancer Objective Objective Vital Signs Date Time Temp Pulse Resp B/P (MAP) Pulse Ox O2 Delivery O2 Flow Rate FiO2 01/09/17 15:00 97.9 63 14 111/54 (73) 96 Room Air 97.9 Intake and Output 01/09/17 07:00 Intake Total 990 ml Balance 990 ml Intake Oral 740 ml IV Total 250 ml # Voids 4 Physical Exam Heart: Normal S1, Normal S2 General: Alert, Oriented X3 Lungs: Clear to auscultation Assessment Assessment Problems Medical Problems: (1) Abscess Status: Acute (2) Breast cancer Status: Acute (3) Neutropenic fever Status: Acute Assessment and plan: 1. Triple negative breast cancer on neoadjuvant chemotherapy by her oncologist in [facility]. She is now admitted for toxicities of her first cycle of chemotherapy with Adriamycin and Cytoxan. She'll follow up with her oncologist upon discharge. #2 neutropenia due to chemotherapy. I started her on granix on 01/08/17, Monitor cbc, d/c when ANC more than 5.0. 3. Right breast mass/abscess. Appreciate surgery consultation. I d/w Dr Bardales. Comment Review of Relevant I have reviewed the following items shannon (where applicable) has been applied. Labs Laboratory Tests Test 01/07/17 18:35 01/08/17 03:20 01/08/17 21:40 White Blood Count 3.6 x10^3/uL (4.0-11.0) 2.5 x10^3/uL (4.0-11.0) Red Blood Count 4.16 x10^6/uL (3.50-5.40) 3.40 x10^6/uL (3.50-5.40) Hemoglobin 11.4 g/dL (12.0-15.5) 9.5 g/dL (12.0-15.5) Hematocrit 34.7 % (36.0-47.0) 28.7 % (36.0-47.0) Mean Corpuscular Volume 84 fL (79-100) 84 fL (79-100) Mean Corpuscular Hemoglobin 28 pg (25-35) 28 pg (25-35) Mean Corpuscular Hemoglobin Concent 33 g/dL (31-37) 33 g/dL (31-37) Red Cell Distribution Width 13.9 % (11.5-14.5) 14.0 % (11.5-14.5) Platelet Count 240 x10^3/uL (140-400) 183 x10^3/uL (140-400) Neutrophils (%) (Auto) 66 % (31-73) 58 % (31-73) Lymphocytes (%) (Auto) 29 % (24-48) 36 % (24-48) Monocytes (%) (Auto) 3 % (0-9) 4 % (0-9) Eosinophils (%) (Auto) 1 % (0-3) 2 % (0-3) Basophils (%) (Auto) 0 % (0-3) 0 % (0-3) Neutrophils # (Auto) 2.4 x10^3uL (1.8-7.7) 1.4 x10^3uL (1.8-7.7) Lymphocytes # (Auto) 1.0 x10^3/uL (1.0-4.8) 0.9 x10^3/uL (1.0-4.8) Monocytes # (Auto) 0.1 x10^3/uL (0.0-1.1) 0.1 x10^3/uL (0.0-1.1) Eosinophils # (Auto) 0.0 x10^3/uL (0.0-0.7) 0.1 x10^3/uL (0.0-0.7) Basophils # (Auto) 0.0 x10^3/uL (0.0-0.2) 0.0 x10^3/uL (0.0-0.2) Segmented Neutrophils % 44 % (35-66) Band Neutrophils % 16 % (0-9) Lymphocytes % 36 % (24-48) Monocytes % 4 % (0-10) Dohle Bodies Few Platelet Estimate Adequate (ADEQUATE) Sodium Level 137 mmol/L (136-145) 142 mmol/L (136-145) Potassium Level 4.2 mmol/L (3.5-5.1) 4.1 mmol/L (3.5-5.1) Chloride Level 100 mmol/L (98-107) 109 mmol/L (98-107) Carbon Dioxide Level 29 mmol/L (21-32) 26 mmol/L (21-32) Anion Gap 8 (6-14) 7 (6-14) Blood Urea Nitrogen 11 mg/dL (7-20) 9 mg/dL (7-20) Creatinine 0.4 mg/dL (0.6-1.0) 0.5 mg/dL (0.6-1.0) Estimated GFR (Cockcroft-Gault) 175.0 135.3 Glucose Level 101 mg/dL (70-99) 105 mg/dL (70-99) Lactic Acid Level 0.8 mmol/L (0.4-2.0) Calcium Level 9.0 mg/dL (8.5-10.1) 7.4 mg/dL (8.5-10.1) Total Bilirubin 0.2 mg/dL (0.2-1.0) Direct Bilirubin 0.1 mg/dL (0.0-0.2) Aspartate Amino Transf (AST/SGOT) 19 U/L (15-37) Alanine Aminotransferase (ALT/SGPT) 27 U/L (14-59) Alkaline Phosphatase 116 U/L (46-116) Total Protein 8.1 g/dL (6.4-8.2) Albumin 3.3 g/dL (3.4-5.0) Vancomycin Level Trough 9.0 mcg/mL (10.0-20.0) Vancomycin Last Dose Date 01/08/17 Vancomycin Last Dose Time 1400 Laboratory Tests Test 01/08/17 21:40 Vancomycin Level Trough 9.0 mcg/mL (10.0-20.0) Vancomycin Last Dose Date 01/08/17 Vancomycin Last Dose Time 1400 Microbiology 01/07/17 Blood Culture - Preliminary, Resulted NO GROWTH AFTER 1 DAY Medications Current Medications Fentanyl Citrate (Fentanyl 2ml Vial) 25 mcg PRN Q15MIN PRN IV PAIN GREATER THAN 3/10 Last administered on 01/07/17 18:47; Start 01/07/17 at 18:30; Stop 01/08 at 18:29; Status DC Sodium Chloride 1,000 ml @ 1,000 mls/hr Q1H IV Last administered on 01/07/17 18:27; Start 01/07/17 at 18:27; Stop 01/07/17 at 19:26; Status DC Vancomycin HCl (Vanco Per Pharmacy) 1 each PRN DAILY PRN MC SEE COMMENTS Last administered on 01/09/17 10:59; Start 01/07/17 at 20:45 Piperacillin Sod/ Tazobactam Sod (Zosyn Per Pharmacy) 1 each PRN DAILY PRN MC SEE COMMENTS; Start 01/07/17 at 20:45 Vancomycin HCl 1.5 gm/Sodium Chloride 500 ml @ 250 mls/hr 1X ONCE IV Last administered on 01/07/17 21:05; Start 01/07/17 at 20:45; Stop 01/07/17 at 22:44; Status DC Piperacillin Sod/ Tazobactam Sod 4.5 gm/Sodium Chloride 100 ml @ 200 mls/hr 1X ONCE IV Last administered on 01/07/17 20:50; Start 01/07/17 at 20:45; Stop 01/07/17 at 21:14; Status DC Ondansetron HCl (Zofran) 4 mg PRN Q8HRS PRN IV NAUSEA/VOMITING; Start 01/07/17 at 21:45; Stop 01/07/17 at 23:01; Status DC Morphine Sulfate 4 mg PRN Q2HR PRN IV SEVERE PAIN; Start 01/07/17 at 21:45; Stop 01/08/17 at 21:44; Status DC Sodium Chloride 1,000 ml @ 125 mls/hr Q8H IV Last administered on 01/08/17 05: 45; Start 01/07/17 at 21:43; Stop 01/08/17 at 21:42; Status DC Acetaminophen (Tylenol) 650 mg PRN Q4HRS PRN PO FEVER; Start 01/07/17 at 21:45; Stop 01/08/17 at 21:44; Status DC Vancomycin HCl 1 gm/Sodium Chloride 250 ml @ 250 mls/hr Q8HRS IV Last administered on 01/08/17 22:22; Start 01/08/17 at 06:00; Stop 01/09/17 at 01:00; Status DC Piperacillin Sod/ Tazobactam Sod 4.5 gm/Sodium Chloride 100 ml @ 200 mls/hr Q6HRS IV Last administered on 01/09/17 11:25; Start 01/08/17 at 00:00 Acetaminophen (Tylenol) 325 mg PRN Q6HRS PRN PO MILD PAIN / TEMP; Start at 23:00 Acetaminophen/ Hydrocodone Bitart (Lortab 5/325) 1 tab PRN Q6HRS PRN PO MODERATE TO SEVERE PAIN Last administered on 01/09/17 11:24; Start 01/07/17 at 23 :00 Hydralazine HCl (Apresoline) 10 mg PRN Q4HRS PRN IVP ELEVATED BP, SEE COMMENTS ; Start 01/07/17 at 23:00 Ondansetron HCl (Zofran) 4 mg PRN Q8HRS PRN IV NAUSEA/VOMITING; Start 01/07/17 at 23:00; Stop 01/08/17 at 07:36; Status DC Albuterol Sulfate (Ventolin Neb Soln) 2.5 mg PRN Q4HRS PRN NEB SHORTNESS OF BREATH; Start 01/07/17 at 23:00 Vancomycin HCl 1 each 1X ONCE MC Last administered on 01/08/17 21:30; Start at 21:30; Stop 01/08/17 at 21:31; Status DC Ondansetron HCl (Zofran) 4 mg PRN Q6HRS PRN IV NAUSEA/VOMITING; Start 01/08/17 at 07:35 Acetaminophen/ Hydrocodone Bitart (Lortab 5/325) 1 tab PRN TID PRN PO pain; Start 01/08/17 at 07:45; Stop 01/08/17 at 10:58; Status DC Lisinopril (Prinivil) 5 mg DAILY PO ; Start 01/08/17 at 09:00 Tbo-Filgrastim (Granix) 300 mcg QHS SQ Last administered on 01/08/17 20:37; Start 01/08/17 at 21:00 Enoxaparin Sodium (Lovenox 40mg Syringe) 40 mg QHS SQ Last administered on 22:23; Start 01/08/17 at 21:30 Vancomycin HCl 1.25 gm/Sodium Chloride 250 ml @ 167 mls/hr Q8HRS IV Last administered on 01/09/17 06:31; Start 01/09/17 at 06:00 Vancomycin HCl 1 each 1X ONCE MC ; Start 01/10/17 at 05:30; Stop 01/10/17 at 05: 31 Active Scripts Active Reported [place] 5-325 Tablet (Acetaminophen/Hydrocodone Bitart) 1 Each Tablet 1-2 Tab PO Q4-6HRS LAST DOSE GIVEN: DATE: today TIME: 545 pm so next dose at 945 pm as needed for pain Lisinopril 5 Mg Tablet 5 Mg PO DAILY Vitals/I & O Vital Sign - Last 24 Hours 01/08/17 01/08/17 01/08/17 01/08/17 19:05 20:30 20:37 21:40 Temp 97.9 97.9 Pulse 84 Resp 18 18 18 B/P (MAP) 104/62 (76) Pulse Ox 97 97 97 O2 Delivery Room Air Room Air Room Air Room Air 01/08/17 01/09/17 01/09/17 01/09/17 23:09 03:14 07:00 08:10 Temp 98.1 97.7 98.9 98.1 97.7 98.9 Pulse 66 61 68 Resp 18 16 14 B/P (MAP) 114/65 (81) 102/51 (68) 97/61 (73) Pulse Ox 97 96 98 O2 Delivery Room Air Room Air Room Air Room Air 01/09/17 01/09/17 01/09/17 11:00 11:24 15:00 Temp 98.8 97.9 98.8 97.9 Pulse 65 63 Resp 14 20 14 B/P (MAP) 104/56 (72) 111/54 (73) Pulse Ox 97 96 O2 Delivery Room Air Room Air Room Air Intake and Output 01/08/17 01/08/17 01/09/17 15:00 23:00 07:00 Intake Total 240 ml 750 ml Balance 240 ml 750 ml LEXUS MURILLO MD Jan 09, 2017 16:01
[2017-01-09 19:40] VITALS: BP 114/70
[2017-01-09] MEDS: ENOXAPARIN 40 MG/0.4 ML SYRINGE. SQ SCH (20:27)
[2017-01-09] MEDS: TBO-FILGRASTIM 300 MCG/0.5 ML SYRINGE. SQ SCH (20:27)
[2017-01-09 23:22] VITALS: BP 110/62
[2017-01-10] MEDS: PIPERACILLIN/TAZOBACTAM 4.5 GM in IV NORMAL SALINE 100ML 100 ML IV SCH ×4 (00:24→19:11)
[2017-01-10 03:20] VITALS: BP 101/63
[2017-01-10] MEDS: HYDROcodone/APAP 5/325MG 1 TAB TABLET PO PRN (05:21)
[2017-01-10 06:15] LABS: CALCIUM 7.7 mg/dL (8.5-10.1); CREATININE 0.6 mg/dL (0.6-1.0); GFR 109.6
[2017-01-10] MEDS: VANCOMYCIN 1.25 GM in IV NORMAL SALINE 250ML 250 ML IV SCH ×3 (06:27→22:11)
[2017-01-10 06:35] LABS: BASO % 1 % (0-3); EOS % 1 % (0-3); HEMATOCRIT 27.8 % (36.0-47.0); HEMOGLOBIN 9.5 g/dL (12.0-15.5); LYMPH # 1.4 x10^3/uL (1.0-4.8); LYMPH % 36 % (24-48); MEAN CORPUSCULAR HEMOGLOBIN 28 pg (25-35); MEAN CORPUSCULAR HGB CONC 34 g/dL (31-37); MEAN CORPUSCULAR VOLUME 82 fL (79-100); MONO % 21 % (0-9); NEUT % 41 % (31-73); PLATELET COUNT 171 x10^3/uL (140-400); RED BLOOD COUNT 3.37 x10^6/uL (3.50-5.40); RED CELL DISTRIBUTION WIDTH 13.2 % (11.5-14.5); WHITE BLOOD COUNT 3.8 x10^3/uL (4.0-11.0)
[2017-01-10] MEDS: VANCOMYCIN PER PHARMACY MC PRN (06:44)
[2017-01-10 07:00] VITALS: BP 113/66
[2017-01-10] MEDS: LISINOPRIL 5 MG TABLET. PO SCH (09:06)
[2017-01-10 10:16] LABS: % EOS 5 % (0-5); NUCLEATED RBC 3; PLT ESTIMATE ADEQUATE (ADEQUATE)
[2017-01-10 10:17] LABS: ANISOCYTOSIS PRESENT; POLYCHROMASIA PRESENT
[2017-01-10 11:00] VITALS: BP 118/55
--- NOTE | 2017-01-10 11:35 | PDOC ---
PROGRESS NOTES Chief Complaint Chief Complaint 1. Locally advanced breast cancer s/p neoadjuvant chemo 2. R breast cellulitis and abscess 3. SIRS POA, no sepsis yet 4. Neutropenic fever 5. Mild PCM (albumin 3,3) History of Present Illness History of Present Illness Patient is doing well this am. No acute complaints. Patient seen at bedside with loved one and thoroughly explained medications and plan of care. Vitals Vitals Vital Signs Date Time Temp Pulse Resp B/P (MAP) Pulse Ox O2 Delivery O2 Flow Rate FiO2 01/10/17 11:00 96.3 70 18 118/55 (76) 97 Room Air 96.3 Physical Exam General: Alert, Oriented X3 Heart: Normal S1, Normal S2 Abdomen: Soft, No tenderness Extremities: No clubbing Skin: No rashes Labs LABS Laboratory Tests Test 01/09/17 20:44 01/10/17 05:45 Glucose (Fingerstick) 146 mg/dL (70-99) White Blood Count 3.8 x10^3/uL (4.0-11.0) Red Blood Count 3.37 x10^6/uL (3.50-5.40) Hemoglobin 9.5 g/dL (12.0-15.5) Hematocrit 27.8 % (36.0-47.0) Mean Corpuscular Volume 82 fL (79-100) Mean Corpuscular Hemoglobin 28 pg (25-35) Mean Corpuscular Hemoglobin Concent 34 g/dL (31-37) Red Cell Distribution Width 13.2 % (11.5-14.5) Platelet Count 171 x10^3/uL (140-400) Neutrophils (%) (Auto) 41 % (31-73) Lymphocytes (%) (Auto) 36 % (24-48) Monocytes (%) (Auto) 21 % (0-9) Eosinophils (%) (Auto) 1 % (0-3) Basophils (%) (Auto) 1 % (0-3) Neutrophils # (Auto) 1.6 x10^3uL (1.8-7.7) Lymphocytes # (Auto) 1.4 x10^3/uL (1.0-4.8) Monocytes # (Auto) 0.8 x10^3/uL (0.0-1.1) Eosinophils # (Auto) 0.0 x10^3/uL (0.0-0.7) Basophils # (Auto) 0.0 x10^3/uL (0.0-0.2) Segmented Neutrophils % 15 % (35-66) Band Neutrophils % 19 % (0-9) Lymphocytes % 43 % (24-48) Monocytes % 18 % (0-10) Eosinophils % 5 % (0-5) Nucleated Red Blood Cells 3 Platelet Estimate Adequate (ADEQUATE) Polychromasia Present Anisocytosis Present Sodium Level 142 mmol/L (136-145) Potassium Level 4.0 mmol/L (3.5-5.1) Chloride Level 108 mmol/L (98-107) Carbon Dioxide Level 28 mmol/L (21-32) Anion Gap 6 (6-14) Blood Urea Nitrogen 4 mg/dL (7-20) Creatinine 0.6 mg/dL (0.6-1.0) Estimated GFR (Cockcroft-Gault) 109.6 Glucose Level 94 mg/dL (70-99) Calcium Level 7.7 mg/dL (8.5-10.1) Vancomycin Level Trough 17.4 mcg/mL (10.0-20.0) Vancomycin Last Dose Date 01/09/17 Vancomycin Last Dose Time 2200 Review of Systems Review of Systems Patient denies MCDONALD, n/v, abdominal pain. Assessment and Plan Assessmemt and Plan Assessment: 1. Locally advanced breast cancer s/p neoadjuvant chemo 2. R breast cellulitis and abscess 3. SIRS POA, no sepsis yet 4. Neutropenic fever 5. Mild PCM (albumin 3,3) Plan: 1. Cont to monitor CBC, electrolytes 2. Surgery consulted -- no drainable abscess. Heme/onc consulted and started granix 3. Cont Vanc and zosyn 4. Following cultures 5. Tylenol for fever 6. Negative cultures after 2 days 7. Discussed plan with patient and nursing staff 8. Possible D/c pending subspecialty input Problems: Comment Review of Relevant I have reviewed the following items shannon (where applicable) has been applied. Labs Laboratory Tests Test 01/08/17 21:40 01/09/17 20:44 01/10/17 05:45 Vancomycin Level Trough 9.0 mcg/mL (10.0-20.0) 17.4 mcg/mL (10.0-20.0) Vancomycin Last Dose Date 01/08/17 01/09/17 Vancomycin Last Dose Time 1400 2200 Glucose (Fingerstick) 146 mg/dL (70-99) White Blood Count 3.8 x10^3/uL (4.0-11.0) Red Blood Count 3.37 x10^6/uL (3.50-5.40) Hemoglobin 9.5 g/dL (12.0-15.5) Hematocrit 27.8 % (36.0-47.0) Mean Corpuscular Volume 82 fL (79-100) Mean Corpuscular Hemoglobin 28 pg (25-35) Mean Corpuscular Hemoglobin Concent 34 g/dL (31-37) Red Cell Distribution Width 13.2 % (11.5-14.5) Platelet Count 171 x10^3/uL (140-400) Neutrophils (%) (Auto) 41 % (31-73) Lymphocytes (%) (Auto) 36 % (24-48) Monocytes (%) (Auto) 21 % (0-9) Eosinophils (%) (Auto) 1 % (0-3) Basophils (%) (Auto) 1 % (0-3) Neutrophils # (Auto) 1.6 x10^3uL (1.8-7.7) Lymphocytes # (Auto) 1.4 x10^3/uL (1.0-4.8) Monocytes # (Auto) 0.8 x10^3/uL (0.0-1.1) Eosinophils # (Auto) 0.0 x10^3/uL (0.0-0.7) Basophils # (Auto) 0.0 x10^3/uL (0.0-0.2) Segmented Neutrophils % 15 % (35-66) Band Neutrophils % 19 % (0-9) Lymphocytes % 43 % (24-48) Monocytes % 18 % (0-10) Eosinophils % 5 % (0-5) Nucleated Red Blood Cells 3 Platelet Estimate Adequate (ADEQUATE) Polychromasia Present Anisocytosis Present Sodium Level 142 mmol/L (136-145) Potassium Level 4.0 mmol/L (3.5-5.1) Chloride Level 108 mmol/L (98-107) Carbon Dioxide Level 28 mmol/L (21-32) Anion Gap 6 (6-14) Blood Urea Nitrogen 4 mg/dL (7-20) Creatinine 0.6 mg/dL (0.6-1.0) Estimated GFR (Cockcroft-Gault) 109.6 Glucose Level 94 mg/dL (70-99) Calcium Level 7.7 mg/dL (8.5-10.1) Laboratory Tests Test 01/09/17 20:44 01/10/17 05:45 Glucose (Fingerstick) 146 mg/dL (70-99) White Blood Count 3.8 x10^3/uL (4.0-11.0) Red Blood Count 3.37 x10^6/uL (3.50-5.40) Hemoglobin 9.5 g/dL (12.0-15.5) Hematocrit 27.8 % (36.0-47.0) Mean Corpuscular Volume 82 fL (79-100) Mean Corpuscular Hemoglobin 28 pg (25-35) Mean Corpuscular Hemoglobin Concent 34 g/dL (31-37) Red Cell Distribution Width 13.2 % (11.5-14.5) Platelet Count 171 x10^3/uL (140-400) Neutrophils (%) (Auto) 41 % (31-73) Lymphocytes (%) (Auto) 36 % (24-48) Monocytes (%) (Auto) 21 % (0-9) Eosinophils (%) (Auto) 1 % (0-3) Basophils (%) (Auto) 1 % (0-3) Neutrophils # (Auto) 1.6 x10^3uL (1.8-7.7) Lymphocytes # (Auto) 1.4 x10^3/uL (1.0-4.8) Monocytes # (Auto) 0.8 x10^3/uL (0.0-1.1) Eosinophils # (Auto) 0.0 x10^3/uL (0.0-0.7) Basophils # (Auto) 0.0 x10^3/uL (0.0-0.2) Segmented Neutrophils % 15 % (35-66) Band Neutrophils % 19 % (0-9) Lymphocytes % 43 % (24-48) Monocytes % 18 % (0-10) Eosinophils % 5 % (0-5) Nucleated Red Blood Cells 3 Platelet Estimate Adequate (ADEQUATE) Polychromasia Present Anisocytosis Present Sodium Level 142 mmol/L (136-145) Potassium Level 4.0 mmol/L (3.5-5.1) Chloride Level 108 mmol/L (98-107) Carbon Dioxide Level 28 mmol/L (21-32) Anion Gap 6 (6-14) Blood Urea Nitrogen 4 mg/dL (7-20) Creatinine 0.6 mg/dL (0.6-1.0) Estimated GFR (Cockcroft-Gault) 109.6 Glucose Level 94 mg/dL (70-99) Calcium Level 7.7 mg/dL (8.5-10.1) Vancomycin Level Trough 17.4 mcg/mL (10.0-20.0) Vancomycin Last Dose Date 01/09/17 Vancomycin Last Dose Time 2200 Microbiology 01/07/17 Blood Culture - Preliminary, Resulted NO GROWTH AFTER 2 DAYS Medications Current Medications Fentanyl Citrate (Fentanyl 2ml Vial) 25 mcg PRN Q15MIN PRN IV PAIN GREATER THAN 3/10 Last administered on 01/07/17 18:47; Start 01/07/17 at 18:30; Stop 01/08 at 18:29; Status DC Sodium Chloride 1,000 ml @ 1,000 mls/hr Q1H IV Last administered on 01/07/17 18:27; Start 01/07/17 at 18:27; Stop 01/07/17 at 19:26; Status DC Vancomycin HCl (Vanco Per Pharmacy) 1 each PRN DAILY PRN MC SEE COMMENTS Last administered on 01/10/17 06:44; Start 01/07/17 at 20:45 Piperacillin Sod/ Tazobactam Sod (Zosyn Per Pharmacy) 1 each PRN DAILY PRN MC SEE COMMENTS; Start 01/07/17 at 20:45 Vancomycin HCl 1.5 gm/Sodium Chloride 500 ml @ 250 mls/hr 1X ONCE IV Last administered on 01/07/17 21:05; Start 01/07/17 at 20:45; Stop 01/07/17 at 22:44; Status DC Piperacillin Sod/ Tazobactam Sod 4.5 gm/Sodium Chloride 100 ml @ 200 mls/hr 1X ONCE IV Last administered on 01/07/17 20:50; Start 01/07/17 at 20:45; Stop 01/07/17 at 21:14; Status DC Ondansetron HCl (Zofran) 4 mg PRN Q8HRS PRN IV NAUSEA/VOMITING; Start 01/07/17 at 21:45; Stop 01/07/17 at 23:01; Status DC Morphine Sulfate 4 mg PRN Q2HR PRN IV SEVERE PAIN; Start 01/07/17 at 21:45; Stop 01/08/17 at 21:44; Status DC Sodium Chloride 1,000 ml @ 125 mls/hr Q8H IV Last administered on 01/08/17 05: 45; Start 01/07/17 at 21:43; Stop 01/08/17 at 21:42; Status DC Acetaminophen (Tylenol) 650 mg PRN Q4HRS PRN PO FEVER; Start 01/07/17 at 21:45; Stop 01/08/17 at 21:44; Status DC Vancomycin HCl 1 gm/Sodium Chloride 250 ml @ 250 mls/hr Q8HRS IV Last administered on 01/08/17 22:22; Start 01/08/17 at 06:00; Stop 01/09/17 at 01:00; Status DC Piperacillin Sod/ Tazobactam Sod 4.5 gm/Sodium Chloride 100 ml @ 200 mls/hr Q6HRS IV Last administered on 01/10/17 05:45; Start 01/08/17 at 00:00 Acetaminophen (Tylenol) 325 mg PRN Q6HRS PRN PO MILD PAIN / TEMP; Start at 23:00 Acetaminophen/ Hydrocodone Bitart (Lortab 5/325) 1 tab PRN Q6HRS PRN PO MODERATE TO SEVERE PAIN Last administered on 01/10/17 05:21; Start 01/07/17 at 23 :00 Hydralazine HCl (Apresoline) 10 mg PRN Q4HRS PRN IVP ELEVATED BP, SEE COMMENTS ; Start 01/07/17 at 23:00 Ondansetron HCl (Zofran) 4 mg PRN Q8HRS PRN IV NAUSEA/VOMITING; Start 01/07/17 at 23:00; Stop 01/08/17 at 07:36; Status DC Albuterol Sulfate (Ventolin Neb Soln) 2.5 mg PRN Q4HRS PRN NEB SHORTNESS OF BREATH; Start 01/07/17 at 23:00 Vancomycin HCl 1 each 1X ONCE MC Last administered on 01/08/17 21:30; Start at 21:30; Stop 01/08/17 at 21:31; Status DC Ondansetron HCl (Zofran) 4 mg PRN Q6HRS PRN IV NAUSEA/VOMITING; Start 01/08/17 at 07:35 Acetaminophen/ Hydrocodone Bitart (Lortab 5/325) 1 tab PRN TID PRN PO pain; Start 01/08/17 at 07:45; Stop 01/08/17 at 10:58; Status DC Lisinopril (Prinivil) 5 mg DAILY PO Last administered on 01/10/17 09:06; Start 01/08/17 at 09:00 Tbo-Filgrastim (Granix) 300 mcg QHS SQ Last administered on 01/09/17 20:27; Start 01/08/17 at 21:00 Enoxaparin Sodium (Lovenox 40mg Syringe) 40 mg QHS SQ Last administered on 20:27; Start 01/08/17 at 21:30 Vancomycin HCl 1.25 gm/Sodium Chloride 250 ml @ 167 mls/hr Q8HRS IV Last administered on 01/10/17 06:27; Start 01/09/17 at 06:00 Vancomycin HCl 1 each 1X ONCE MC Last administered on 01/10/17 05:51; Start at 05:30; Stop 01/10/17 at 05:31; Status DC Active Scripts Active Reported [place] 5-325 Tablet (Acetaminophen/Hydrocodone Bitart) 1 Each Tablet 1-2 Tab PO Q4-6HRS LAST DOSE GIVEN: DATE: today TIME: 545 pm so next dose at 945 pm as needed for pain Lisinopril 5 Mg Tablet 5 Mg PO DAILY Vitals/I & O Vital Sign - Last 24 Hours 01/09/17 01/09/17 01/09/17 01/09/17 12:30 15:00 19:40 20:00 Temp 97.9 97.5 97.9 97.5 Pulse 63 87 Resp 14 18 B/P (MAP) 111/54 (73) 114/70 (85) Pulse Ox 91 96 97 O2 Delivery Room Air Room Air Room Air 01/09/17 01/10/17 01/10/17 01/10/17 23:22 03:20 05:21 06:27 Temp 96.6 97.5 96.6 97.5 Pulse 74 73 Resp 18 18 16 16 B/P (MAP) 110/62 (78) 101/63 (76) Pulse Ox 97 98 O2 Delivery Room Air Room Air Room Air Room Air 01/10/17 01/10/17 01/10/17 01/10/17 07:00 08:00 09:06 11:00 Temp 96.3 96.3 96.3 96.3 Pulse 62 62 70 Resp 18 18 B/P (MAP) 113/66 (82) 113/66 118/55 (76) Pulse Ox 97 97 O2 Delivery Room Air Room Air Room Air Intake and Output 01/09/17 01/09/17 01/10/17 15:00 23:00 07:00 Intake Total 1775 ml Balance 1775 ml GUILLERMINA WHITE III DO Jan 10, 2017 11:35
[2017-01-10 15:00] VITALS: BP 104/54
[2017-01-10 19:00] VITALS: BP 110/57
[2017-01-10] MEDS: ENOXAPARIN 40 MG/0.4 ML SYRINGE. SQ SCH (22:12)
[2017-01-10] MEDS: TBO-FILGRASTIM 300 MCG/0.5 ML SYRINGE. SQ SCH (22:12)
[2017-01-10 23:00] VITALS: BP 109/73
[2017-01-11 03:00] VITALS: BP 92/52
[2017-01-11 04:38] LABS: BASO % 0 % (0-3); EOS % 0 % (0-3); HEMATOCRIT 29.4 % (36.0-47.0); HEMOGLOBIN 9.7 g/dL (12.0-15.5); LYMPH % 17 % (24-48); MEAN CORPUSCULAR HEMOGLOBIN 28 pg (25-35); MEAN CORPUSCULAR HGB CONC 33 g/dL (31-37); MEAN CORPUSCULAR VOLUME 84 fL (79-100); MONO % 9 % (0-9); NEUT % 74 % (31-73); PLATELET COUNT 169 x10^3/uL (140-400); RED BLOOD COUNT 3.49 x10^6/uL (3.50-5.40); RED CELL DISTRIBUTION WIDTH 13.8 % (11.5-14.5); WHITE BLOOD COUNT 11.7 x10^3/uL (4.0-11.0)
[2017-01-11 05:59] LABS: CALCIUM 8.4 mg/dL (8.5-10.1); CREATININE 0.6 mg/dL (0.6-1.0); GFR 109.6; POTASSIUM 3.9 mmol/L (3.5-5.1)
[2017-01-11] MEDS: PIPERACILLIN/TAZOBACTAM 4.5 GM in IV NORMAL SALINE 100ML 100 ML IV SCH ×5 (06:10→18:23)
[2017-01-11 07:00] VITALS: BP 92/55
[2017-01-11] MEDS: VANCOMYCIN 1.25 GM in IV NORMAL SALINE 250ML 250 ML IV SCH ×3 (07:33→21:26)
[2017-01-11] MEDS: LISINOPRIL 5 MG TABLET. PO SCH (09:00)
[2017-01-11 11:00] VITALS: BP 96/44
--- NOTE | 2017-01-11 12:20 | PDOC ---
PROGRESS NOTES Chief Complaint Chief Complaint 1. Locally advanced breast cancer s/p neoadjuvant chemo 2. R breast cellulitis and abscess 3. SIRS POA, no sepsis yet 4. Neutropenic fever 5. Mild PCM (albumin 3,3) History of Present Illness History of Present Illness pt is resting comfortably in bed, she is kenyan speaker but accompanied by daughter who speaks vietnamese, daughter states pt has no complaints and is happy that WBC increased from 3.8 to 11.7, probable DC tomorrow Vitals Vitals Vital Signs Date Time Temp Pulse Resp B/P (MAP) Pulse Ox O2 Delivery O2 Flow Rate FiO2 01/11/17 11:00 98.0 75 20 96/44 (61) 97 Room Air 98.0 Physical Exam General: Alert, Oriented X3, Cooperative, No acute distress Heart: Regular rate, Normal S1, Normal S2, No murmurs Lungs: Clear Abdomen: Normal bowel sounds, Soft, No tenderness Extremities: No clubbing, No cyanosis, No edema Skin: No rashes, No breakdown, No significant lesion Labs LABS Laboratory Tests Test 01/11/17 04:15 White Blood Count 11.7 x10^3/uL (4.0-11.0) Red Blood Count 3.49 x10^6/uL (3.50-5.40) Hemoglobin 9.7 g/dL (12.0-15.5) Hematocrit 29.4 % (36.0-47.0) Mean Corpuscular Volume 84 fL (79-100) Mean Corpuscular Hemoglobin 28 pg (25-35) Mean Corpuscular Hemoglobin Concent 33 g/dL (31-37) Red Cell Distribution Width 13.8 % (11.5-14.5) Platelet Count 169 x10^3/uL (140-400) Neutrophils (%) (Auto) 74 % (31-73) Lymphocytes (%) (Auto) 17 % (24-48) Monocytes (%) (Auto) 9 % (0-9) Eosinophils (%) (Auto) 0 % (0-3) Basophils (%) (Auto) 0 % (0-3) Neutrophils # (Auto) 8.6 x10^3uL (1.8-7.7) Lymphocytes # (Auto) 2.0 x10^3/uL (1.0-4.8) Monocytes # (Auto) 1.1 x10^3/uL (0.0-1.1) Eosinophils # (Auto) 0.0 x10^3/uL (0.0-0.7) Basophils # (Auto) 0.0 x10^3/uL (0.0-0.2) Sodium Level 142 mmol/L (136-145) Potassium Level 3.9 mmol/L (3.5-5.1) Chloride Level 106 mmol/L (98-107) Carbon Dioxide Level 26 mmol/L (21-32) Anion Gap 10 (6-14) Blood Urea Nitrogen 5 mg/dL (7-20) Creatinine 0.6 mg/dL (0.6-1.0) Estimated GFR (Cockcroft-Gault) 109.6 Glucose Level 86 mg/dL (70-99) Calcium Level 8.4 mg/dL (8.5-10.1) Review of Systems Review of Systems denies nausea, vomiting and MCDONALD per daughter Assessment and Plan Assessmemt and Plan Assessment: 1. Locally advanced breast cancer s/p neoadjuvant chemo 2. R breast cellulitis and abscess 3. SIRS POA, no sepsis yet 4. Neutropenic fever 5. Mild PCM (albumin 3,3) Plan: 1. Cont to monitor CBC, electrolytes 2. Surgery consulted -- no drainable abscess. Heme/onc consulted and started granix 3. Cont Vanc and zosyn 4. Following cultures 5. Tylenol for fever 6. Negative cultures after 3 days 7. Discussed plan with patient and nursing staff 8. Possible D/c tomorrow pending subspecialty input Problems: Comment Review of Relevant I have reviewed the following items shannon (where applicable) has been applied. Labs Laboratory Tests Test 01/09/17 20:44 01/10/17 05:45 01/11/17 04:15 Glucose (Fingerstick) 146 mg/dL (70-99) White Blood Count 3.8 x10^3/uL (4.0-11.0) 11.7 x10^3/uL (4.0-11.0) Red Blood Count 3.37 x10^6/uL (3.50-5.40) 3.49 x10^6/uL (3.50-5.40) Hemoglobin 9.5 g/dL (12.0-15.5) 9.7 g/dL (12.0-15.5) Hematocrit 27.8 % (36.0-47.0) 29.4 % (36.0-47.0) Mean Corpuscular Volume 82 fL (79-100) 84 fL (79-100) Mean Corpuscular Hemoglobin 28 pg (25-35) 28 pg (25-35) Mean Corpuscular Hemoglobin Concent 34 g/dL (31-37) 33 g/dL (31-37) Red Cell Distribution Width 13.2 % (11.5-14.5) 13.8 % (11.5-14.5) Platelet Count 171 x10^3/uL (140-400) 169 x10^3/uL (140-400) Neutrophils (%) (Auto) 41 % (31-73) 74 % (31-73) Lymphocytes (%) (Auto) 36 % (24-48) 17 % (24-48) Monocytes (%) (Auto) 21 % (0-9) 9 % (0-9) Eosinophils (%) (Auto) 1 % (0-3) 0 % (0-3) Basophils (%) (Auto) 1 % (0-3) 0 % (0-3) Neutrophils # (Auto) 1.6 x10^3uL (1.8-7.7) 8.6 x10^3uL (1.8-7.7) Lymphocytes # (Auto) 1.4 x10^3/uL (1.0-4.8) 2.0 x10^3/uL (1.0-4.8) Monocytes # (Auto) 0.8 x10^3/uL (0.0-1.1) 1.1 x10^3/uL (0.0-1.1) Eosinophils # (Auto) 0.0 x10^3/uL (0.0-0.7) 0.0 x10^3/uL (0.0-0.7) Basophils # (Auto) 0.0 x10^3/uL (0.0-0.2) 0.0 x10^3/uL (0.0-0.2) Segmented Neutrophils % 15 % (35-66) Band Neutrophils % 19 % (0-9) Lymphocytes % 43 % (24-48) Monocytes % 18 % (0-10) Eosinophils % 5 % (0-5) Nucleated Red Blood Cells 3 Platelet Estimate Adequate (ADEQUATE) Polychromasia Present Anisocytosis Present Sodium Level 142 mmol/L (136-145) 142 mmol/L (136-145) Potassium Level 4.0 mmol/L (3.5-5.1) 3.9 mmol/L (3.5-5.1) Chloride Level 108 mmol/L (98-107) 106 mmol/L (98-107) Carbon Dioxide Level 28 mmol/L (21-32) 26 mmol/L (21-32) Anion Gap 6 (6-14) 10 (6-14) Blood Urea Nitrogen 4 mg/dL (7-20) 5 mg/dL (7-20) Creatinine 0.6 mg/dL (0.6-1.0) 0.6 mg/dL (0.6-1.0) Estimated GFR (Cockcroft-Gault) 109.6 109.6 Glucose Level 94 mg/dL (70-99) 86 mg/dL (70-99) Calcium Level 7.7 mg/dL (8.5-10.1) 8.4 mg/dL (8.5-10.1) Vancomycin Level Trough 17.4 mcg/mL (10.0-20.0) Vancomycin Last Dose Date 01/09/17 Vancomycin Last Dose Time 2200 Laboratory Tests Test 01/11/17 04:15 White Blood Count 11.7 x10^3/uL (4.0-11.0) Red Blood Count 3.49 x10^6/uL (3.50-5.40) Hemoglobin 9.7 g/dL (12.0-15.5) Hematocrit 29.4 % (36.0-47.0) Mean Corpuscular Volume 84 fL (79-100) Mean Corpuscular Hemoglobin 28 pg (25-35) Mean Corpuscular Hemoglobin Concent 33 g/dL (31-37) Red Cell Distribution Width 13.8 % (11.5-14.5) Platelet Count 169 x10^3/uL (140-400) Neutrophils (%) (Auto) 74 % (31-73) Lymphocytes (%) (Auto) 17 % (24-48) Monocytes (%) (Auto) 9 % (0-9) Eosinophils (%) (Auto) 0 % (0-3) Basophils (%) (Auto) 0 % (0-3) Neutrophils # (Auto) 8.6 x10^3uL (1.8-7.7) Lymphocytes # (Auto) 2.0 x10^3/uL (1.0-4.8) Monocytes # (Auto) 1.1 x10^3/uL (0.0-1.1) Eosinophils # (Auto) 0.0 x10^3/uL (0.0-0.7) Basophils # (Auto) 0.0 x10^3/uL (0.0-0.2) Sodium Level 142 mmol/L (136-145) Potassium Level 3.9 mmol/L (3.5-5.1) Chloride Level 106 mmol/L (98-107) Carbon Dioxide Level 26 mmol/L (21-32) Anion Gap 10 (6-14) Blood Urea Nitrogen 5 mg/dL (7-20) Creatinine 0.6 mg/dL (0.6-1.0) Estimated GFR (Cockcroft-Gault) 109.6 Glucose Level 86 mg/dL (70-99) Calcium Level 8.4 mg/dL (8.5-10.1) Microbiology 01/07/17 Blood Culture - Preliminary, Resulted NO GROWTH AFTER 3 DAYS Medications Current Medications Fentanyl Citrate (Fentanyl 2ml Vial) 25 mcg PRN Q15MIN PRN IV PAIN GREATER THAN 3/10 Last administered on 01/07/17 18:47; Start 01/07/17 at 18:30; Stop 01/08 at 18:29; Status DC Sodium Chloride 1,000 ml @ 1,000 mls/hr Q1H IV Last administered on 01/07/17 18:27; Start 01/07/17 at 18:27; Stop 01/07/17 at 19:26; Status DC Vancomycin HCl (Vanco Per Pharmacy) 1 each PRN DAILY PRN MC SEE COMMENTS Last administered on 01/10/17 06:44; Start 01/07/17 at 20:45 Piperacillin Sod/ Tazobactam Sod (Zosyn Per Pharmacy) 1 each PRN DAILY PRN MC SEE COMMENTS; Start 01/07/17 at 20:45 Vancomycin HCl 1.5 gm/Sodium Chloride 500 ml @ 250 mls/hr 1X ONCE IV Last administered on 01/07/17 21:05; Start 01/07/17 at 20:45; Stop 01/07/17 at 22:44; Status DC Piperacillin Sod/ Tazobactam Sod 4.5 gm/Sodium Chloride 100 ml @ 200 mls/hr 1X ONCE IV Last administered on 01/07/17 20:50; Start 01/07/17 at 20:45; Stop 01/07/17 at 21:14; Status DC Ondansetron HCl (Zofran) 4 mg PRN Q8HRS PRN IV NAUSEA/VOMITING; Start 01/07/17 at 21:45; Stop 01/07/17 at 23:01; Status DC Morphine Sulfate 4 mg PRN Q2HR PRN IV SEVERE PAIN; Start 01/07/17 at 21:45; Stop 01/08/17 at 21:44; Status DC Sodium Chloride 1,000 ml @ 125 mls/hr Q8H IV Last administered on 01/08/17 05: 45; Start 01/07/17 at 21:43; Stop 01/08/17 at 21:42; Status DC Acetaminophen (Tylenol) 650 mg PRN Q4HRS PRN PO FEVER; Start 01/07/17 at 21:45; Stop 01/08/17 at 21:44; Status DC Vancomycin HCl 1 gm/Sodium Chloride 250 ml @ 250 mls/hr Q8HRS IV Last administered on 01/08/17 22:22; Start 01/08/17 at 06:00; Stop 01/09/17 at 01:00; Status DC Piperacillin Sod/ Tazobactam Sod 4.5 gm/Sodium Chloride 100 ml @ 200 mls/hr Q6HRS IV Last administered on 01/11/17 06:10; Start 01/08/17 at 00:00 Acetaminophen (Tylenol) 325 mg PRN Q6HRS PRN PO MILD PAIN / TEMP; Start at 23:00 Acetaminophen/ Hydrocodone Bitart (Lortab 5/325) 1 tab PRN Q6HRS PRN PO MODERATE TO SEVERE PAIN Last administered on 01/10/17 05:21; Start 01/07/17 at 23 :00 Hydralazine HCl (Apresoline) 10 mg PRN Q4HRS PRN IVP ELEVATED BP, SEE COMMENTS ; Start 01/07/17 at 23:00 Ondansetron HCl (Zofran) 4 mg PRN Q8HRS PRN IV NAUSEA/VOMITING; Start 01/07/17 at 23:00; Stop 01/08/17 at 07:36; Status DC Albuterol Sulfate (Ventolin Neb Soln) 2.5 mg PRN Q4HRS PRN NEB SHORTNESS OF BREATH; Start 01/07/17 at 23:00 Vancomycin HCl 1 each 1X ONCE MC Last administered on 01/08/17 21:30; Start at 21:30; Stop 01/08/17 at 21:31; Status DC Ondansetron HCl (Zofran) 4 mg PRN Q6HRS PRN IV NAUSEA/VOMITING; Start 01/08/17 at 07:35 Acetaminophen/ Hydrocodone Bitart (Lortab 5/325) 1 tab PRN TID PRN PO pain; Start 01/08/17 at 07:45; Stop 01/08/17 at 10:58; Status DC Lisinopril (Prinivil) 5 mg DAILY PO Last administered on 01/10/17 09:06; Start 01/08/17 at 09:00 Tbo-Filgrastim (Granix) 300 mcg QHS SQ Last administered on 01/10/17 22:12; Start 01/08/17 at 21:00; Stop 01/11/17 at 07:21; Status DC Enoxaparin Sodium (Lovenox 40mg Syringe) 40 mg QHS SQ Last administered on 22:12; Start 01/08/17 at 21:30 Vancomycin HCl 1.25 gm/Sodium Chloride 250 ml @ 167 mls/hr Q8HRS IV Last administered on 01/11/17 07:33; Start 01/09/17 at 06:00 Vancomycin HCl 1 each 1X ONCE MC Last administered on 01/10/17 05:51; Start at 05:30; Stop 01/10/17 at 05:31; Status DC Active Scripts Active Reported [place] 5-325 Tablet (Acetaminophen/Hydrocodone Bitart) 1 Each Tablet 1-2 Tab PO Q4-6HRS LAST DOSE GIVEN: DATE: today TIME: 545 pm so next dose at 945 pm as needed for pain Lisinopril 5 Mg Tablet 5 Mg PO DAILY Vitals/I & O Vital Sign - Last 24 Hours 01/10/17 01/10/17 01/10/17 01/10/17 15:00 19:00 20:00 23:00 Temp 96.3 98.1 97.3 96.3 98.1 97.3 Pulse 66 75 74 Resp 18 18 18 B/P (MAP) 104/54 (71) 110/57 (74) 109/73 (85) Pulse Ox 98 97 98 O2 Delivery Room Air Room Air Room Air Room Air 01/11/17 01/11/17 01/11/17 01/11/17 03:00 07:00 08:00 08:10 Temp 98.1 97.5 98.1 97.5 Pulse 63 71 Resp 18 16 B/P (MAP) 92/52 (65) 92/55 (67) Pulse Ox 96 97 100 O2 Delivery Room Air Room Air Room Air Room Air 01/11/17 01/11/17 09:00 11:00 Temp 98.0 98.0 Pulse 71 75 Resp 20 B/P (MAP) 92/55 96/44 (61) Pulse Ox 97 O2 Delivery Room Air GUILLERMINA WHITE III DO Jan 11, 2017 12:20
[2017-01-11] MEDS: VANCOMYCIN PER PHARMACY MC PRN (13:31)
[2017-01-11 15:00] VITALS: BP 103/60
[2017-01-11 19:00] VITALS: BP 102/53
[2017-01-11] MEDS: ENOXAPARIN 40 MG/0.4 ML SYRINGE. SQ SCH (21:25)
[2017-01-11 23:00] VITALS: BP 109/67
[2017-01-12] MEDS: PIPERACILLIN/TAZOBACTAM 4.5 GM in IV NORMAL SALINE 100ML 100 ML IV SCH ×3 (00:43→12:00)
[2017-01-12 03:00] VITALS: BP 109/67
[2017-01-12 04:04] LABS: BASO % 0 % (0-3); EOS % 0 % (0-3); HEMATOCRIT 29.6 % (36.0-47.0); HEMOGLOBIN 9.7 g/dL (12.0-15.5); LYMPH # 2.2 x10^3/uL (1.0-4.8); LYMPH % 9 % (24-48); MEAN CORPUSCULAR HEMOGLOBIN 28 pg (25-35); MEAN CORPUSCULAR HGB CONC 33 g/dL (31-37); MEAN CORPUSCULAR VOLUME 85 fL (79-100); MONO % 7 % (0-9); NEUT % 83 % (31-73); PLATELET COUNT 175 x10^3/uL (140-400); RED CELL DISTRIBUTION WIDTH 13.9 % (11.5-14.5); WHITE BLOOD COUNT 23.8 x10^3/uL (4.0-11.0)
[2017-01-12 05:14] LABS: CALCIUM 8.3 mg/dL (8.5-10.1); CREATININE 0.8 mg/dL (0.6-1.0); GFR 78.7; POTASSIUM 3.4 mmol/L (3.5-5.1)
[2017-01-12 07:00] VITALS: BP 122/68
[2017-01-12 07:16] LABS: ANISOCYTOSIS SLIGHT; PLT ESTIMATE ADEQUATE (ADEQUATE); POLYCHROMASIA SLIGHT
[2017-01-12] MEDS: VANCOMYCIN 1.25 GM in IV NORMAL SALINE 250ML 250 ML IV SCH ×2 (07:36→14:00)
[2017-01-12] MEDS: LISINOPRIL 5 MG TABLET. PO SCH (09:36)
[2017-01-12] MEDS: VANCOMYCIN PER PHARMACY MC PRN (10:47)
[2017-01-12 11:00] VITALS: BP 119/76
--- NOTE | 2017-01-12 12:26 | PDOC ---
PROGRESS NOTES Subjective Subjective c/c - f/u of breast ca Objective Objective Vital Signs Date Time Temp Pulse Resp B/P (MAP) Pulse Ox O2 Delivery O2 Flow Rate FiO2 01/12/17 11:00 98.0 67 16 119/76 (90) 96 Room Air 98.0 Intake and Output 01/12/17 07:00 Intake Total 450 ml Balance 450 ml Intake Oral 450 ml # Voids 2 Physical Exam Heart: Normal S1, Normal S2 General: Alert, Oriented X3 Lungs: Clear to auscultation Assessment Assessment Problems Medical Problems: (1) Abscess Status: Acute (2) Breast cancer Status: Acute (3) Neutropenic fever Status: Acute Assessment and plan: 1. Triple negative breast cancer on neoadjuvant chemotherapy by her oncologist in [facility]. She is now admitted for toxicities of her first cycle of chemotherapy with Adriamycin and Cytoxan. She'll follow up with her oncologist upon discharge. #2 neutropenia due to chemotherapy. I started her on granix on 01/08/17, d/c'ed now as WBC improve. 3. Right breast mass/abscess. Appreciate surgery consultation. I d/w Dr Bardales. 4. Leukocytosis due to granix. Comment Review of Relevant I have reviewed the following items shannon (where applicable) has been applied. Labs Laboratory Tests Test 01/11/17 04:15 01/12/17 03:07 White Blood Count 11.7 x10^3/uL (4.0-11.0) 23.8 x10^3/uL (4.0-11.0) Red Blood Count 3.49 x10^6/uL (3.50-5.40) 3.50 x10^6/uL (3.50-5.40) Hemoglobin 9.7 g/dL (12.0-15.5) 9.7 g/dL (12.0-15.5) Hematocrit 29.4 % (36.0-47.0) 29.6 % (36.0-47.0) Mean Corpuscular Volume 84 fL (79-100) 85 fL (79-100) Mean Corpuscular Hemoglobin 28 pg (25-35) 28 pg (25-35) Mean Corpuscular Hemoglobin Concent 33 g/dL (31-37) 33 g/dL (31-37) Red Cell Distribution Width 13.8 % (11.5-14.5) 13.9 % (11.5-14.5) Platelet Count 169 x10^3/uL (140-400) 175 x10^3/uL (140-400) Neutrophils (%) (Auto) 74 % (31-73) 83 % (31-73) Lymphocytes (%) (Auto) 17 % (24-48) 9 % (24-48) Monocytes (%) (Auto) 9 % (0-9) 7 % (0-9) Eosinophils (%) (Auto) 0 % (0-3) 0 % (0-3) Basophils (%) (Auto) 0 % (0-3) 0 % (0-3) Neutrophils # (Auto) 8.6 x10^3uL (1.8-7.7) 19.8 x10^3uL (1.8-7.7) Lymphocytes # (Auto) 2.0 x10^3/uL (1.0-4.8) 2.2 x10^3/uL (1.0-4.8) Monocytes # (Auto) 1.1 x10^3/uL (0.0-1.1) 1.7 x10^3/uL (0.0-1.1) Eosinophils # (Auto) 0.0 x10^3/uL (0.0-0.7) 0.0 x10^3/uL (0.0-0.7) Basophils # (Auto) 0.0 x10^3/uL (0.0-0.2) 0.0 x10^3/uL (0.0-0.2) Sodium Level 142 mmol/L (136-145) 143 mmol/L (136-145) Potassium Level 3.9 mmol/L (3.5-5.1) 3.4 mmol/L (3.5-5.1) Chloride Level 106 mmol/L (98-107) 107 mmol/L (98-107) Carbon Dioxide Level 26 mmol/L (21-32) 25 mmol/L (21-32) Anion Gap 10 (6-14) 11 (6-14) Blood Urea Nitrogen 5 mg/dL (7-20) 6 mg/dL (7-20) Creatinine 0.6 mg/dL (0.6-1.0) 0.8 mg/dL (0.6-1.0) Estimated GFR (Cockcroft-Gault) 109.6 78.7 Glucose Level 86 mg/dL (70-99) 91 mg/dL (70-99) Calcium Level 8.4 mg/dL (8.5-10.1) 8.3 mg/dL (8.5-10.1) Segmented Neutrophils % 30 % (35-66) Band Neutrophils % 41 % (0-9) Lymphocytes % 14 % (24-48) Monocytes % 4 % (0-10) Metamyelocytes % 9 % (0-0) Myelocytes % 2 % (0-0) Dohle Bodies Few Platelet Estimate Adequate (ADEQUATE) Polychromasia Slight Anisocytosis Slight Laboratory Tests Test 01/12/17 03:07 White Blood Count 23.8 x10^3/uL (4.0-11.0) Red Blood Count 3.50 x10^6/uL (3.50-5.40) Hemoglobin 9.7 g/dL (12.0-15.5) Hematocrit 29.6 % (36.0-47.0) Mean Corpuscular Volume 85 fL (79-100) Mean Corpuscular Hemoglobin 28 pg (25-35) Mean Corpuscular Hemoglobin Concent 33 g/dL (31-37) Red Cell Distribution Width 13.9 % (11.5-14.5) Platelet Count 175 x10^3/uL (140-400) Neutrophils (%) (Auto) 83 % (31-73) Lymphocytes (%) (Auto) 9 % (24-48) Monocytes (%) (Auto) 7 % (0-9) Eosinophils (%) (Auto) 0 % (0-3) Basophils (%) (Auto) 0 % (0-3) Neutrophils # (Auto) 19.8 x10^3uL (1.8-7.7) Lymphocytes # (Auto) 2.2 x10^3/uL (1.0-4.8) Monocytes # (Auto) 1.7 x10^3/uL (0.0-1.1) Eosinophils # (Auto) 0.0 x10^3/uL (0.0-0.7) Basophils # (Auto) 0.0 x10^3/uL (0.0-0.2) Segmented Neutrophils % 30 % (35-66) Band Neutrophils % 41 % (0-9) Lymphocytes % 14 % (24-48) Monocytes % 4 % (0-10) Metamyelocytes % 9 % (0-0) Myelocytes % 2 % (0-0) Dohle Bodies Few Platelet Estimate Adequate (ADEQUATE) Polychromasia Slight Anisocytosis Slight Sodium Level 143 mmol/L (136-145) Potassium Level 3.4 mmol/L (3.5-5.1) Chloride Level 107 mmol/L (98-107) Carbon Dioxide Level 25 mmol/L (21-32) Anion Gap 11 (6-14) Blood Urea Nitrogen 6 mg/dL (7-20) Creatinine 0.8 mg/dL (0.6-1.0) Estimated GFR (Cockcroft-Gault) 78.7 Glucose Level 91 mg/dL (70-99) Calcium Level 8.3 mg/dL (8.5-10.1) Microbiology 01/07/17 Blood Culture - Preliminary, Resulted NO GROWTH AFTER 4 DAYS Medications Current Medications Fentanyl Citrate (Fentanyl 2ml Vial) 25 mcg PRN Q15MIN PRN IV PAIN GREATER THAN 3/10 Last administered on 01/07/17 18:47; Start 01/07/17 at 18:30; Stop 01/08 at 18:29; Status DC Sodium Chloride 1,000 ml @ 1,000 mls/hr Q1H IV Last administered on 01/07/17 18:27; Start 01/07/17 at 18:27; Stop 01/07/17 at 19:26; Status DC Vancomycin HCl (Vanco Per Pharmacy) 1 each PRN DAILY PRN MC SEE COMMENTS Last administered on 01/12/17 10:47; Start 01/07/17 at 20:45 Piperacillin Sod/ Tazobactam Sod (Zosyn Per Pharmacy) 1 each PRN DAILY PRN MC SEE COMMENTS; Start 01/07/17 at 20:45; Stop 01/12/17 at 10:36; Status DC Vancomycin HCl 1.5 gm/Sodium Chloride 500 ml @ 250 mls/hr 1X ONCE IV Last administered on 01/07/17 21:05; Start 01/07/17 at 20:45; Stop 01/07/17 at 22:44; Status DC Piperacillin Sod/ Tazobactam Sod 4.5 gm/Sodium Chloride 100 ml @ 200 mls/hr 1X ONCE IV Last administered on 01/07/17 20:50; Start 01/07/17 at 20:45; Stop 01/07/17 at 21:14; Status DC Ondansetron HCl (Zofran) 4 mg PRN Q8HRS PRN IV NAUSEA/VOMITING; Start 01/07/17 at 21:45; Stop 01/07/17 at 23:01; Status DC Morphine Sulfate 4 mg PRN Q2HR PRN IV SEVERE PAIN; Start 01/07/17 at 21:45; Stop 01/08/17 at 21:44; Status DC Sodium Chloride 1,000 ml @ 125 mls/hr Q8H IV Last administered on 01/08/17 05: 45; Start 01/07/17 at 21:43; Stop 01/08/17 at 21:42; Status DC Acetaminophen (Tylenol) 650 mg PRN Q4HRS PRN PO FEVER; Start 01/07/17 at 21:45; Stop 01/08/17 at 21:44; Status DC Vancomycin HCl 1 gm/Sodium Chloride 250 ml @ 250 mls/hr Q8HRS IV Last administered on 01/08/17 22:22; Start 01/08/17 at 06:00; Stop 01/09/17 at 01:00; Status DC Piperacillin Sod/ Tazobactam Sod 4.5 gm/Sodium Chloride 100 ml @ 200 mls/hr Q6HRS IV Last administered on 01/12/17 06:00; Start 01/08/17 at 00:00 Acetaminophen (Tylenol) 325 mg PRN Q6HRS PRN PO MILD PAIN / TEMP; Start at 23:00 Acetaminophen/ Hydrocodone Bitart (Lortab 5/325) 1 tab PRN Q6HRS PRN PO MODERATE TO SEVERE PAIN Last administered on 01/10/17 05:21; Start 01/07/17 at 23 :00 Hydralazine HCl (Apresoline) 10 mg PRN Q4HRS PRN IVP ELEVATED BP, SEE COMMENTS ; Start 01/07/17 at 23:00 Ondansetron HCl (Zofran) 4 mg PRN Q8HRS PRN IV NAUSEA/VOMITING; Start 01/07/17 at 23:00; Stop 01/08/17 at 07:36; Status DC Albuterol Sulfate (Ventolin Neb Soln) 2.5 mg PRN Q4HRS PRN NEB SHORTNESS OF BREATH; Start 01/07/17 at 23:00 Vancomycin HCl 1 each 1X ONCE MC Last administered on 01/08/17 21:30; Start at 21:30; Stop 01/08/17 at 21:31; Status DC Ondansetron HCl (Zofran) 4 mg PRN Q6HRS PRN IV NAUSEA/VOMITING; Start 01/08/17 at 07:35 Acetaminophen/ Hydrocodone Bitart (Lortab 5/325) 1 tab PRN TID PRN PO pain; Start 01/08/17 at 07:45; Stop 01/08/17 at 10:58; Status DC Lisinopril (Prinivil) 5 mg DAILY PO Last administered on 01/12/17 09:36; Start 01/08/17 at 09:00 Tbo-Filgrastim (Granix) 300 mcg QHS SQ Last administered on 01/10/17 22:12; Start 01/08/17 at 21:00; Stop 01/11/17 at 07:21; Status DC Enoxaparin Sodium (Lovenox 40mg Syringe) 40 mg QHS SQ Last administered on 21:25; Start 01/08/17 at 21:30 Vancomycin HCl 1.25 gm/Sodium Chloride 250 ml @ 167 mls/hr Q8HRS IV Last administered on 01/12/17 07:36; Start 01/09/17 at 06:00 Vancomycin HCl 1 each 1X ONCE MC Last administered on 01/10/17 05:51; Start at 05:30; Stop 01/10/17 at 05:31; Status DC Active Scripts Active Reported [place] 5-325 Tablet (Acetaminophen/Hydrocodone Bitart) 1 Each Tablet 1-2 Tab PO Q4-6HRS LAST DOSE GIVEN: DATE: today TIME: 545 pm so next dose at 945 pm as needed for pain Lisinopril 5 Mg Tablet 5 Mg PO DAILY Vitals/I & O Vital Sign - Last 24 Hours 01/11/17 01/11/17 01/11/17 01/11/17 15:00 19:00 20:30 23:00 Temp 98.4 98.2 98.3 98.4 98.2 98.3 Pulse 71 84 79 Resp 16 18 18 B/P (MAP) 103/60 (74) 102/53 (69) 109/67 (81) Pulse Ox 93 94 95 O2 Delivery Room Air Room Air Room Air Room Air 01/12/17 01/12/17 01/12/17 01/12/17 03:00 07:00 08:15 09:36 Temp 98.4 98.5 98.4 98.5 Pulse 63 68 68 Resp 18 16 B/P (MAP) 109/67 (81) 122/68 (86) 122/68 Pulse Ox 94 98 O2 Delivery Room Air Room Air Room Air 01/12/17 11:00 Temp 98.0 98.0 Pulse 67 Resp 16 B/P (MAP) 119/76 (90) Pulse Ox 96 O2 Delivery Room Air Intake and Output 01/11/17 01/11/17 01/12/17 15:00 23:00 07:00 Intake Total 450 ml Balance 450 ml LEXUS MURILLO MD Jan 12, 2017 12:26
--- NOTE | 2017-01-12 13:58 | PDOC3 ---
Discharge Summary* Date of Admission: Jan 07, 2017 Date of Discharge: Jan 12, 2017 Admitting Diagnosis Neutropenic Fever Problems: Final Diagnosis Neutropenic fever Breast cellulitis CONSULTS Oncology Surgery Brief Hospital Course Ms. Waldrop is a 41 old with recent diagnosis of triple negative breast cancer, started on neoadjuvant chemotherapy with AC about 1 week prior to admission. She complained on right breast swelling and redness, as well as drainage without constitutional symptoms such as fever or weakness. She was found with borderline neutropenia and was started on granix with good response in her WBC within 3 days. In the meantime, she was covered with broad spectrum antibiotics wit resolution of low grade temps. Surgical consult was obtained as well, but no abscess for I&D was identified. with improvement on all issues, she was deemed appropriate for discharge to the care of her primary oncologist on 01/12/17. Disposition/Orders: D/C to Home CONDITION AT DISCHARGE: Improved Diet: Regular Scheduled Hydrocodone/[place] 5-325 ([place] 5-325 Tablet), 1-2 TAB PO Q4-6HRS, (Reported) Lisinopril (Lisinopril), 5 MG PO DAILY, (Reported) FOLLOW UP APPOINTMENT: oncology as previousy arranged Time Spent Total time spent with patient [] minutes for coordination of care, counseling, and education. MAXWELL HOOD MD Jan 12, 2017 13:58
[2017-01-12 15:00] VITALS: BP 113/53
== END 2017-01-12 17:50 | disposition home or self-care (01) | DRG 809 ==
LOC: ER 17:01 → 4 NORTH 20:29
PROVIDERS: ADMIT Internal Medicine; ATTEND Internal Medicine
DX: D70.1 Agranulocytosis secondary to cancer chemotherapy (principal); R65.10 Systemic inflammatory response syndrome (SIRS) of non-infectious origin without acute organ dysfunction; E44.1 Mild protein-calorie malnutrition; C50.911 Malignant neoplasm of unspecified site of right female breast; I10 Essential (primary) hypertension; N64.4 Mastodynia; R50.81 Fever presenting with conditions classified elsewhere; T45.1X5A Adverse effect of antineoplastic and immunosuppressive drugs, initial encounter; Z17.1 Estrogen receptor negative status [ER-]; Z79.899 Other long term (current) drug therapy; Z68.29 Body mass index [BMI] 29.0-29.9, adult; Z80.41 Family history of malignant neoplasm of ovary
CPT/HCPCS: 36415; 71010; 76641; 80048; 80076; 80202; 82962; 83605; 85007; 85027; 87040; 93005; 94250; 94760; 96361; 96365; 96375; J1650; J2543; J3010; J3370; J7030; J7040; J7050; 99285-25; J1442

== ENCOUNTER → 2017-01-07 | Outpatient (CLI) | payer OTHER ==
[2016-11-26 18:10] VITALS: BP 134/67
--- NOTE | 2017-01-07 15:41 | RAD ---
Indication staging breast malignancy. 27 mCi of technetium labeled MDP was administered. Whole body static images were obtained. No prior bone scan imaging is available. The radiopharmaceutical is symmetrically distributed throughout the bony skeleton. No abnormal activity to suggest skeletal metastatic disease is seen. Normal activity is seen in the kidneys and urinary bladder. IMPRESSION: Negative study for osseous metastatic disease
== END | disposition home or self-care (01) ==
LOC: NM 09:26
PROVIDERS: ATTEND Family Medicine
DX: D05.11 Intraductal carcinoma in situ of right breast (principal); I10 Essential (primary) hypertension
CPT/HCPCS: 78306; 96374; A9503

== ENCOUNTER 2017-02-11 10:22 | Emergency (ER) | payer SELFPAY ==
[2017-02-11] MEDS ORDERED: IV NORMAL SALINE 1000ML BAG 1,000 ML IV SCH (10:54)
[2017-02-11] MEDS ORDERED: 0.9 % SODIUM CHLORIDE 10 ML DISP.SYRIN. IV PRN (11:00)
--- NOTE | 2017-02-11 11:07 | PHYS DOC ---
Past Medical History Past Medical History: Cancer, Hypertension, Other Additional Past Medical Histor: R BREAST CANCER Past Surgical History: Alcohol Use: None Drug Use: None Adult General Chief Complaint Chief Complaint: ABNORMAL LABS [facility] HPI Is a very pleasant 41-year-old Dominican female who is presently getting chemotherapy for breast cancer through a Port-A-Cath in her chest wall she is on her fourth round at this time. She normally gets lab tests drawn on Mondays before beginning her chemotherapy her doctor Dr. whalen oncologist called her to tell her that she was very neutropenic. The nurse asked the patient go to the emergency or urgent emergency room. Patient only complaint is 6-7 episodes of nausea with vomiting, 6-7 episodes of diarrhea with no blood or mucus. Patient has no abdominal pain, no fevers no chills that she is documented. She denies any UTI symptoms, hematuria, recent URI symptoms runny nose cough congestion or sore throat. Patient denies any chest pain but has had some exertional shortness of breath on occasion. Nothing recently. Patient denies any travel outside the country, denies any sick contacts, denies any recent antibiotic use. Patient lives at home with her family. She only other prior medical problems with C-sections and a prior mastectomy. Review of Systems Review of Systems Constitutional: Denies fever or chills [] Eyes: Denies change in visual acuity, redness, or eye pain [] HENT: Denies nasal congestion or sore throat [] Respiratory: Denies cough or has had a slight shortness of breath with exertion. Cardiovascular: No additional information not addressed in [facility] [] GI: Denies abdominal pain, she does complain of nausea vomiting and diarrhea with nonbilious nonbloody emesis. There is no blood in her stool or mucus. : Denies dysuria or hematuria [] Musculoskeletal: Denies back pain or joint pain [] Integument: Denies rash or skin lesions [] Neurologic: Denies headache, focal weakness or sensory changes [] Endocrine: Denies polyuria or polydipsia [] Current Medications Current Medications Current Medications Medications (Trade) Dose Ordered Sig/Stephen Start Time Stop Time Status Last Admin Dose Admin Sodium Chloride (Normal Saline Flush) 10 ml QSHIFT PRN 02/11/17 11:00 Allergies Allergies Allergies Coded Allergies Type Severity Reaction Last Updated Verified No Known Drug Allergies 11/26/16 No Physical Exam Physical Exam Vital signs recorded on the chart demonstrate a normal vital signs for patient. Constitutional: Well developed, well nourished, no acute distress, non-toxic appearance. [] HENT: Normocephalic, atraumatic, bilateral external ears normal, slightly dry mucous membranes. No oral exudates, nose normal. [] Eyes: PERRLA, EOMI, conjunctiva normal, no discharge. [] Neck: Normal range of motion, no tenderness, supple, no stridor. [] Cardiovascular:Heart rate regular rhythm, no murmur [] Lungs & Thorax: Bilateral breath sounds clear to auscultation [] Abdomen: Bowel sounds normal, soft, no tenderness, no masses, no pulsatile masses. [] Skin: Warm, dry, no erythema, no rash. Brisk capillary refill +2 brisk peripheral pulses. Back: No tenderness, no CVA tenderness. [] Extremities: No tenderness, no cyanosis, no clubbing, ROM intact, no edema. [] Neurologic: Alert and oriented X 3, normal motor function, normal sensory function, no focal deficits noted. Patient is lucid and very interactive with appropriate mentation. [] Psychologic: Affect normal, judgement normal, mood normal. [] Current Patient Data Vital Signs Vital Signs Date Time Temp Pulse Resp B/P (MAP) Pulse Ox O2 Delivery O2 Flow Rate FiO2 02/11/17 13:16 78 14 108/57 (74) 100 Nasal Cannula 02/11/17 10:41 97.9 97.9 Lab Values Laboratory Tests Test 02/11/17 10:49 02/11/17 11:55 02/11/17 12:04 White Blood Count 4.3 x10^3/uL (4.0-11.0) Red Blood Count 2.92 x10^6/uL (3.50-5.40) L Hemoglobin 8.3 g/dL (12.0-15.5) L Hematocrit 24.2 % (36.0-47.0) L Mean Corpuscular Volume 83 fL (79-100) Mean Corpuscular Hemoglobin 29 pg (25-35) Mean Corpuscular Hemoglobin Concent 34 g/dL (31-37) Red Cell Distribution Width 13.3 % (11.5-14.5) Platelet Count 239 x10^3/uL (140-400) Neutrophils (%) (Auto) 69 % (31-73) Lymphocytes (%) (Auto) 10 % (24-48) L Monocytes (%) (Auto) 21 % (0-9) H Eosinophils (%) (Auto) 0 % (0-3) Basophils (%) (Auto) 0 % (0-3) Neutrophils # (Auto) 3.0 x10^3uL (1.8-7.7) Lymphocytes # (Auto) 0.4 x10^3/uL (1.0-4.8) L Monocytes # (Auto) 0.9 x10^3/uL (0.0-1.1) Eosinophils # (Auto) 0.0 x10^3/uL (0.0-0.7) Basophils # (Auto) 0.0 x10^3/uL (0.0-0.2) Segmented Neutrophils % 50 % (35-66) Band Neutrophils % 15 % (0-9) H Lymphocytes % 16 % (24-48) L Monocytes % 19 % (0-10) H Platelet Estimate Adequate (ADEQUATE) Sodium Level 135 mmol/L (136-145) L Potassium Level 3.1 mmol/L (3.5-5.1) L Chloride Level 100 mmol/L (98-107) Carbon Dioxide Level 27 mmol/L (21-32) Anion Gap 8 (6-14) Blood Urea Nitrogen 12 mg/dL (7-20) Creatinine 0.5 mg/dL (0.6-1.0) L Estimated GFR (Cockcroft-Gault) 135.3 Glucose Level 108 mg/dL (70-99) H Calcium Level 8.2 mg/dL (8.5-10.1) L Magnesium Level 1.5 mg/dL (1.8-2.4) L Total Bilirubin 0.2 mg/dL (0.2-1.0) Direct Bilirubin 0.1 mg/dL (0.0-0.2) Aspartate Amino Transferase (AST) 83 U/L (15-37) H Alanine Aminotransferase (ALT) 98 U/L (14-59) H Alkaline Phosphatase 58 U/L (46-116) Creatine Kinase 17 U/L (26-192) L Creatine Kinase MB (Mass) < 0.5 ng/mL (0.0-3.6) Creatine Kinase MB Relative Index % (0-4) Troponin I Quantitative < 0.017 ng/mL (0.000-0.055) DN-Hej-R-Type Natriuretic Peptide 102 pg/mL (0-124) Total Protein 6.9 g/dL (6.4-8.2) Albumin 2.7 g/dL (3.4-5.0) L Lipase 74 U/L (73-393) Thyroid Stimulating Hormone (TSH) 1.618 uIU/mL (0.358-3.74) Influenza Type A Antigen Negative (NEGATIVE) Influenza Type B Antigen Negative (NEGATIVE) Urine Collection Type Unknown Urine Color Yellow Urine Clarity Clear Urine pH 6.0 Urine Specific [place] 1.020 Urine Protein Negative mg/dL (NEG-TRACE) Urine Glucose (UA) Negative mg/dL (NEG) Urine Ketones (Stick) Trace mg/dL (NEG) Urine Blood Negative (NEG) Urine Nitrite Negative (NEG) Urine Bilirubin Small (NEG) Urine Urobilinogen Dipstick 0.2 mg/dL (0.2 mg/dL) Urine Leukocyte Esterase Small (NEG) Urine RBC Occ /HPF (0-2) Urine WBC 1-4 /HPF (0-4) Urine Squamous Epithelial Cells Mod /LPF Urine Bacteria Few /HPF (0-FEW) Urine Hyaline Casts Occasional /HPF Urine Mucus Slight /LPF Laboratory Tests 02/11/17 10:49 Laboratory Tests 02/11/17 10:49 EKG EKG [] Radiology/Procedures Radiology/Procedures [] [facility] [address] [place], [place] [id number] IMAGING REPORT Signed PATIENT: NOY CAMPBELL ACCOUNT: [id number] : 1975 LOCATION: ER AGE: 41 SEX: F EXAM STATUS: PRE ER ORD. PHYSICIAN: HOPE ESTEVES MD REASON: sob with exertion PROCEDURE: PORTABLE CHEST 1V Indication breast malignancy. A single view of the chest was obtained and is compared to an examination 01/07/2017. The heart and pulmonary vessels are normal. The mediastinum has a normal appearance. The lungs are clear. There is no pleural fluid or pneumothorax. There has been little change compared to the previous exam. A left Port-A-Cath is noted. IMPRESSION: No acute finding in the chest DICTATED and SIGNED BY: KALE CAZARES MD DATE: 02/11/17 1158 CC: HOPE ESTEVES MD; ROSALIND MEAD ~ Course & Med Decision Making Course & Med Decision Making Pertinent Labs and Imaging studies reviewed. (See chart for details) patient presents with the presumptive problem with neutropenia after receiving chemotherapy. Patient has had no fevers, no shortness of breath, UTI symptoms only nausea vomiting diarrhea which is not new. She typically has with her oncology treatments. Patient is this time has no symptoms and no complaints. Patient's initial hemoglobin and hematocrit are 8.3 and 24.2 which is not low enough to require transfusion. Patient's white blood cell count is 4.3 he does demonstrate a increased basophil predominance of 15%. She has a mild bandemia. Patient's CMP is within normal limits with a low creatinine. Patient presents with a normal BNP, normal troponin, normal CK and MB. Laboratory Tests Test 02/11/17 10:49 Hematocrit 24.2 % (36.0-47.0) L Hemoglobin 8.3 g/dL (12.0-15.5) L Red Blood Count 2.92 x10^6/uL (3.50-5.40) L White Blood Count 4.3 x10^3/uL (4.0-11.0) Laboratory Tests Test 02/11/17 10:49 Chloride Level 100 mmol/L (98-107) Potassium Level 3.1 mmol/L (3.5-5.1) L Sodium Level 135 mmol/L (136-145) L Laboratory Tests Test 02/11/17 12:04 Urine WBC 1-4 /HPF (0-4) Certified Caregiver note: Dr. Anderson Olmos Certified Caregiver called at of the service oncology at 1:10 pm Consult called back at attempted multiple times at 1:15, 1:18, 07/27/04 able to get the [place] office to answer us. I finally got a hold of nurse who told me Dr. Olmos is not available he is a radiation oncologist and the on-call physician should be available to answer my questions. She given the number and asked me to call Attempted to call Dr. aTi at approximately 1:30 PM he'll forcefully is in a meeting I left my cell phone number and urged admission for him to call me back and dispositioned this patient. [Patient's urinalysis demonstrates 1-4 white blood cells, few bacteria no one blood cells no nitrates trace is moderate epithelia cells this is likely a contaminant.. Time is now 1:42 PM still waiting for call back from on-call physician. It is now almost 3 PM the on-call physician does not call back. I talked at length with the family and the patient at the bedside patient prefer to go home given the fact she has no fevers, no chills, no abdominal pain, no vomiting or diarrhea she has no discharge or dysuria on urinalysis. Patient prefer to go home. Her niece vida is at the bedside. Evaluation if was noted that she has a mild anemia at 8.2 and 24 but at this level she does not warrant transfusion. She resorted like this return nator with chemotherapy. At this juncture I'll offer her antinausea medications and close follow-up with her oncologist. Her sodium level is mildly low at 135 but also not low enough to cause symptoms requiring hospitalization. Patient's potassium level was 3.1 she'll be offered oral therapy replacement. At this point her family is on their way she will be disposition with close follow-up with her primary care doctor at [facility]. Given precautions to return for fever greater than 102.2 and increasing aches and pain shortness of breath chest pain or other complaints she might have. At this point impression is anemia secondary to chemotherapy, mild bacteriuria, mild hypokalemia, mild hyponatremia. This patient also has a history of nausea vomiting diarrhea that will be treated with antiemetics and antidiarrheals. Dragon Disclaimer Dragon Disclaimer This electronic medical record was generated, in whole or in part, using a voice recognition dictation system. Departure Departure Impression: Primary Impression: Breast cancer in female Additional Impressions: Anemia Hypokalemia Nausea and vomiting Diarrhea Hyponatremia Bacteria in urine Disposition: 01 HOME, SELF-CARE Condition: STABLE Referrals: ROSALIND MEAD (PCP) Patient Instructions: Anemia, Nonspecific-Brief, Diarrhea, Nausea and Vomiting Additional Instructions: Please return for any new or increasing symptoms of abdominal pain, fevers, chills, and vomiting with blood, diarrhea without blood or given any question concerns. Scripts Loperamide HCl (Imodium A-D) 2 Mg Capsule 2 MG PO QID for 7 Days, #28 CAP Prov: HOPE ESTEVES MD 02/11/17 Pantoprazole Sodium (PROTONIX) 40 Mg Tablet.dr 1 TAB PO DAILY, #30 TAB 5 Refills Prov: HOPE ESTEVES MD 02/11/17 Ondansetron (ZOFRAN ODT) 4 Mg Tab.rapdis 4 MG PO BID Y for NAUSEA/VOMITING for 10 Days, #20 TAB Prov: HOPE ESTEVES MD 02/11/17 Problem Qualifiers HOPE ESTEVES MD Feb 11, 2017 11:07
[2017-02-11 11:14] LABS: BASO % 0 % (0-3); EOS % 0 % (0-3); HEMATOCRIT 24.2 % (36.0-47.0); HEMOGLOBIN 8.3 g/dL (12.0-15.5); LYMPH # 0.4 x10^3/uL (1.0-4.8); LYMPH % 10 % (24-48); MEAN CORPUSCULAR HEMOGLOBIN 29 pg (25-35); MEAN CORPUSCULAR HGB CONC 34 g/dL (31-37); MEAN CORPUSCULAR VOLUME 83 fL (79-100); MONO % 21 % (0-9); NEUT % 69 % (31-73); PLATELET COUNT 239 x10^3/uL (140-400); RED BLOOD COUNT 2.92 x10^6/uL (3.50-5.40); RED CELL DISTRIBUTION WIDTH 13.3 % (11.5-14.5); WHITE BLOOD COUNT 4.3 x10^3/uL (4.0-11.0)
[2017-02-11 11:25] LABS: CALCIUM 8.2 mg/dL (8.5-10.1); CREATININE 0.5 mg/dL (0.6-1.0); GFR 135.3; POTASSIUM 3.1 mmol/L (3.5-5.1)
[2017-02-11 11:31] LABS: ALBUMIN 2.7 g/dL (3.4-5.0); DIRECT BILIRUBIN 0.1 mg/dL (0.0-0.2); MAGNESIUM 1.5 mg/dL (1.8-2.4); TOTAL BILIRUBIN 0.2 mg/dL (0.2-1.0); TOTAL PROTEIN 6.9 g/dL (6.4-8.2)
[2017-02-11 11:51] LABS: CREATINE KINASE 17 U/L (26-192)
[2017-02-11 11:52] LABS: CKMB MASS < 0.5 ng/mL (0.0-3.6)
--- NOTE | 2017-02-11 11:56 | RAD ---
Indication breast malignancy. A single view of the chest was obtained and is compared to an examination 01/07/2017. The heart and pulmonary vessels are normal. The mediastinum has a normal appearance. The lungs are clear. There is no pleural fluid or pneumothorax. There has been little change compared to the previous exam. A left Port-A-Cath is noted. IMPRESSION: No acute finding in the chest
[2017-02-11 12:18] LABS: BILIRUBIN,URINE SMALL (NEG); GLUCOSE,URINE NEGATIVE (NEG); NITRITE,URINE NEGATIVE (NEG); PROTEIN,URINE NEGATIVE (NEG-TRACE); UROBILINOGEN,URINE 0.2 mg/dL (0.2 mg/dL)
[2017-02-11 12:28] LABS: BACTERIA,URINE FEW /HPF (0-FEW); RBC,URINE OCC /HPF (0-2); SQUAMOUS EPITHELIAL CELL,UR MOD /LPF
[2017-02-11 12:31] LABS: OBC FLU VALID
--- NOTE | 2017-02-11 12:50 | EKG ---
[facility] [address] [place] [id number] Test Date: 2017-02-11 Test Time: 11:32:23 Pat Name: NOY OCHOAMATTIE Department: Room: Gender: F Manager Lvn: : 1975 Requested By: HOPE ESTEVES Order Number: [id number] Reading MD: Measurements Intervals [place] Rate: 78 P: 41 WA: 146 QRS: 55 QRSD: 80 T: 26 QT: 362 QTc: 416 Interpretive Statements SINUS RHYTHM CONSIDER RIGHT VENTRICULAR HYPERTROPHY POSSIBLY ABNORMAL ECG RI6.01 No previous ECG available for comparison
[2017-02-11 13:02] LABS: PLT ESTIMATE ADEQUATE (ADEQUATE)
[2017-02-11] MEDS ORDERED: ONDA4TAB10 PO (14:58)
[2017-02-11] MEDS ORDERED: PANT40TA3 PO (14:58)
[2017-02-11] MEDS ORDERED: LOPE2CAP88 PO (14:58)
[2017-02-11 15:18] VITALS: BP 106/58
== END 2017-02-11 15:10 | disposition home or self-care (01) ==
LOC: ER 10:22
DX: C50.919 Malignant neoplasm of unspecified site of unspecified female breast (principal); D64.9 Anemia, unspecified; E87.6 Hypokalemia; E87.1 Hypo-osmolality and hyponatremia; D72.825 Bandemia; I10 Essential (primary) hypertension
CPT/HCPCS: 36415; 71010; 80048; 80076; 81001; 82553; 83690; 83735; 83880; 84443; 84484; 85007; 85027; 87086; 87804; 93005; 96360; 99285; J7030

== ENCOUNTER 2017-05-18 06:08 | Observation (INO) | payer OTHER ==
[2017-05-18] VITALS (12 sets, daily range): BP systolic 105–126; BP diastolic 62–79
[~2017-05-18] VITALS: Ht 149.9 cm; Wt 54.9 kg
[~2017-05-18 06:08] MED LIST changes: +FERR-26 PO; +LOPE2CAP88 PO; +ONDA4TAB10 PO; +PANT40TA3 PO
[2017-05-18 06:56] LABS: NEG OBC UR NEG; POS OBC UR POS
[2017-05-18] MEDS ORDERED: IV RINGERS,LACTATED 1000ML 1,000 ML IV SCH (07:00)
[2017-05-18] MEDS ORDERED: PROCHLORPERAZINE 10 MG/2 ML VIAL. IV PRN (07:00)
[2017-05-18] MEDS ORDERED: ONDANSETRON PF 4 MG/2 ML VIAL. IV PRN ×2 (07:00→11:00)
[2017-05-18] MEDS ORDERED: MORPHINE SULFATE 4 MG/ML DISP.SYRIN. IV PRN (07:00)
[2017-05-18] MEDS ORDERED: LIDOCAINE 1% PF 2 ML VIAL. ID PRN (07:00)
[2017-05-18] MEDS ORDERED: fentaNYL PF VIAL 100 MCG/2 ML VIAL IV PRN ×2 (07:00)
[2017-05-18] MEDS ORDERED: HYDROmorphone 2 MG/ML VIAL IV PRN ×2 (07:00→11:00)
[2017-05-18] MEDS ORDERED: MIDAZOLAM HCL/PF 2 MG/2 ML VIAL. ONE (07:18)
[2017-05-18] MEDS ORDERED: LIDOCAINE 2% PF Vial for OR 5 ML VIAL. ONE (07:18)
[2017-05-18] MEDS ORDERED: PROPOFOL 20 ML IV ONE (07:18)
[2017-05-18] MEDS ORDERED: ONDANSETRON PF 4 MG/2 ML VIAL. ONE (07:18)
[2017-05-18] MEDS ORDERED: DEXAMETHASONE SOD PHOS 20 MG/5 ML VIAL. ONE (07:18)
[2017-05-18] MEDS ORDERED: fentaNYL PF VIAL 100 MCG/2 ML VIAL ONE (07:18)
[2017-05-18] MEDS ORDERED: PHENYLEPHRINE in 0.9% NACL PF 1 MG/10 ML DISP.SYRIN. IV ONE (07:38)
[2017-05-18] MEDS ORDERED: METHYLENE BLUE 1% 10 ML VIAL. ONE (07:51)
[2017-05-18] MEDS ORDERED: ISOSULFAN BLUE 50 MG/5 ML VIAL. SQ ONE (07:52)
[2017-05-18] MEDS ORDERED: SEVOFLURANE > 120 MINUTES. IH ONE (08:49)
[2017-05-18] MEDS ORDERED: KETOROLAC 30 MG/ML INJ FOR OR. INJ ONE (10:01)
--- NOTE | 2017-05-18 10:46 | PDOC4 ---
Operative Note Operative Note Operative note: Preoperative diagnosis: Right breast cancer Postoperative diagnosis: Same Procedure: Right modified radical mastectomy Surgeon: Rahat Anesthesia: Gen. EBL: 100 ml Specimen: Right breast, stitch at 12:00 to pathology; axillary contents to pathology Drains: 19 Martiniquais round Jonathan drain to right chest Complications: None Disposition: To recovery room in stable condition Indication: The patient is a 41 year old female who was recently diagnosed with breast cancer with metastasis to the axillary lymph nodes. She underwent neoadjuvant chemotherapy and is now ready for surgical treatment. The plan is to proceed with a right modified radical mastectomy. The details and risks of surgery were discussed with the patient. The risks include bleeding, infection , pain, scar tissue, lymphedema, paresthesias, anesthetic risk, wound healing problems, potential need for additional surgeries or procedures. She understands and would like to proceed. Description: The patient was placed supine on the operating table and general anesthesia was performed. With a marker an elliptical tracing was made around the nipple areolar complex of the right breast extending from the medial chest to the axilla. With a scapel an incision was made following the elliptical tracing. Cautery dissection was used to develop the skin flaps. We began with the superior flap mobilizing the skin away from the deeper breast parenchyma. This dissection was carried superiorly to just below the level of the clavicle. The inferior flap was then developed as well using cautery. This dissection included the inframammary fold and was carried down to the upper torso. In a medial to lateral fashion the breast was then taken off the chest wall and care was taken to include the axillary tail of Rubio. A silk stitch was used to shannon the specimen at the 12 o'clock position and it was sent to pathology. We then proceeded with an axillary dissection. The boundaries of the axillary dissection included the axillary vein superiorly, the pectoralis muscle medially , and the latissimus dorsi muscle laterally. In a superior to inferior manner all of the lymphatic and adipose tissue was mobilized from the surrounding structures. The thoracodorsal bundle and nerve were identified and stimulated appropriately. Also the long thoracic nerve was identified and stimulated appropriately. Care was taken to preserve these nerves. There were a couple of vessels that supplied the axillary contents which were ligated with 2-0 Vicryl. The axillary contents were then fully freed up and sent off to pathology for evaluation. Hemostasis was readily achieved with cautery. A 19 Martiniquais round Jonathan drain was then left in the chest wall which exited inferiorly. This was secured to the skin with 2-0 nylon. The subcutaneous tissue was approximated with interrupted 3-0 Vicryl. The skin was then closed with a running 4-0 Monocryl suture. A sterile OpSite dressing was then placed over the incision. The patient tolerated the procedure well and was sent to the recovery room in stable condition. REY YEAGER MD May 18, 2017 10:46
[2017-05-18] MEDS ORDERED: oxyCODONE/APAP 5/325 1 TAB TABLET PO PRN (11:00)
[2017-05-18] MEDS ORDERED: 0.9 % SODIUM CHLORIDE 10 ML DISP.SYRIN. IV PRN (11:00)
[2017-05-18] MEDS: oxyCODONE/APAP 5/325 1 TAB TABLET PO PRN ×2 (12:15→23:22)
[2017-05-18] MEDS: IV RINGERS,LACTATED 1000ML 1,000 ML IV SCH (12:18)
[2017-05-18] MEDS ORDERED: CYAN10005 PO (19:54)
[2017-05-19] MEDS: IV RINGERS,LACTATED 1000ML 1,000 ML IV SCH (00:20)
[2017-05-19 03:50] VITALS: BP 96/53
[2017-05-19 07:20] VITALS: BP 109/64
[2017-05-19 10:40] VITALS: BP 88/50
[2017-05-19] MEDS: oxyCODONE/APAP 5/325 1 TAB TABLET PO PRN (11:15)
--- NOTE | 2017-05-19 12:09 | PDOC ---
DANILO PANG APRN 05/19/17 1209: SURGICAL PROGRESS NOTE Subjective tolerating diet pain managed ambulating Vital Signs Vital Signs Date Time Temp Pulse Resp B/P (MAP) Pulse Ox O2 Delivery O2 Flow Rate FiO2 05/19/17 10:40 97.6 84 16 88/50 (63) 99 Room Air 97.6 05/18/17 10:50 10 I&O Intake and Output 05/19/17 07:00 Intake Total 1810 ml Output Total 465 ml Balance 1345 ml Intake Oral 10 ml IV Total 1800 ml Output Urine Total 225 ml Drainage Total 140 ml Estimated Blood Loss 100 ml # Voids 5 General: Alert, Oriented X3, Cooperative, No acute distress Skin: Other (right chest, dressing dry, tyrone serosang ) Labs Laboratory Tests Test 05/18/17 06:15 Urine Test Negative (NEG) Problem List s/p mastectomy home with drain FU 1 week Problems: REY YEAGER MD 05/19/17 1254: SURGICAL PROGRESS NOTE Assessment/Plan Agree with above Problems: DANILO PANG APRN May 19, 2017 12:09 REY YEAGER MD May 19, 2017 12:59
[2017-05-19] MEDS ORDERED: OXYC1TAB7 PO ×2 (12:12→12:24)
== END 2017-05-19 15:37 | disposition home or self-care (01) ==
LOC: SURG 06:08 → 4 NORTH 10:46
PROVIDERS: ADMIT Surgery; ATTEND Surgery
DX: C50.911 Malignant neoplasm of unspecified site of right female breast (principal); C77.3 Secondary and unspecified malignant neoplasm of axilla and upper limb lymph nodes
CPT/HCPCS: 19307; 81025; J0690; J1100; J1885; J2250; J2370; J2405; J2704; J3010; G0378; G0379; J7120; Q9968; 97530; J2001

== ENCOUNTER → 2017-10-13 | Outpatient (CLI) | payer OTHER ==
[2017-10-13] MEDS: IOHEXOL 300 MG/ML 100ML VIAL. IV (08:54)
== END | disposition home or self-care (01) ==
LOC: CT 08:11
DX: C50.911 Malignant neoplasm of unspecified site of right female breast (principal); C78.00 Secondary malignant neoplasm of unspecified lung; E32.0 Persistent hyperplasia of thymus; I10 Essential (primary) hypertension
CPT/HCPCS: 71260; Q9967

== ENCOUNTER → 2017-10-20 | Outpatient (CLI) | payer OTHER ==
[~2017-10-20] MED LIST changes: +CONTRAST GIVEN MC; -CYCL10TA2 PO; -FERR-26 PO; -FLUC150T PO; -HYDR-971 PO; -IBUP-1027 PO; -LISI-338 PO; -LOPE2CAP88 PO; -NAPR500T PO; -ONDA4TAB10 PO; -PANT40TA3 PO
[2017-10-20] MEDS: IOHEXOL 240 MG/ML 50ML VIAL. PO (08:45)
[2017-10-20] MEDS: IOHEXOL 300 MG/ML 100ML VIAL. IV (09:38)
== END | disposition home or self-care (01) ==
LOC: NM 08:00
DX: C50.411 Malignant neoplasm of upper-outer quadrant of right female breast (principal); J90 Pleural effusion, not elsewhere classified; I10 Essential (primary) hypertension; R91.1 Solitary pulmonary nodule; Z90.11 Acquired absence of right breast and nipple
CPT/HCPCS: 74160; 78306; 96374; A9503; Q9966; Q9967